=== PATIENT | female | born 1985 | race Hispanic/Latino ===

== ENCOUNTER 2016-06-01 13:03 | Inpatient (IN) | payer OTHER ==
[~2016-06-01] VITALS: Ht 165.1 cm; Wt 68.0 kg
--- NOTE | 2016-06-01 13:28 | ED PSYCHIATRIC COMPLAINT ---
History of Present Illness General Chief Complaint: Psychiatric Related Complaint Stated Complaint: "NOT FEELING WELL" Source: patient Exam Limitations: no limitations Vital Signs & Intake/Output Vital Signs & Intake/Output Vital Signs Date Time Temp Pulse Resp B/P Pulse O2 O2 Flow FiO2 Ox Delivery Rate 06/02 0927 97.6 74 16 146/73 95 Room Air 06/02 0728 97.1 76 16 142/77 98 Room Air 06/02 0617 97.5 78 16 130/86 96 Room Air Room Air 06/01 2240 97.7 87 18 118/56 Room Air 06/01 1618 96.8 60 16 149/70 Room Air 06/01 1412 98 Room Air 06/01 1307 97.0 102 16 134/77 96 Room Air ED Intake and Output 06/02 0000 06/01 1200 Intake Total Output Total Balance Patient 150 lb Weight Allergies Coded Allergies: No Known Allergies (06/01/16) Reconcile Medications Methadone HCl 10 MG/ML ORAL.CONC 110 MG PO DAILY RECOVERY (Reported) Sertraline HCl 100 MG TABLET 1 TAB PO DAILY MENTAL HEALTH (Reported) Triage Note: 31 YEAR OLD FEMALE STATES THAT SHE HAS BEEN HAVING INCREASED DEPRESSION FOR A COUPLE OF MONTHS, HAVING POSITIVE SI THOUGHTS , STTAES THAT SHE HAS BEEN IN METHADONE PROGRAM FOR 2 YEARS, STATES THAT SHE RELAPSED A COUPLE OF MONTHS AGO, LAST HAD HER METHADONE THIS AM, 110 MG. ALSO ADMITS TO USING COCAINE AND DRINKING ALL NIGHT, LAST DRANK AND USED 0600. PT HAS PLAN TO OVERDOSE AND STATES" THAT SHE IS TIRED OF HER LIFE AND JUST WANTS TO " UNABLE TO SLEEP, POOR APPETITE. Triage Nurses Notes Reviewed? yes Onset: Gradual Duration: worse persistent since (weeks) Timing: recent history Severity: severe Severity Numbers: 10 : No Patient currently breastfeeds: No HPI: Patient is a 31-year-old female with history of anxiety, depression suppose to be on Zoloft, takes daily methadone presenting to the emergency department via [facility] chief complaint of "I don't want be here anymore". Patient reports that she has thoughts of hurting herself, no specific plan but she reports that she is just cannot drink and do drugs until she is not here anymore. Denies any current pain physically. Denies any chest pain palpitations or shortness of breath. She reports that she drinks daily. She reports that she uses cocaine. She also admits to auditory hallucinations, voices, she will not specify exactly what they tell her. She reports that she has 'a lot going on". Symptoms severe. Positive anxiety, insomnia. (HORTENCIA JUNG) Past History Travel History Traveled to [place] past 21 day No Medical History Any Pertinent Medical History? 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 No (HORTENCIA JUNG) Review of Systems Review of Systems Constitutional: Reports: no symptoms. Comments Review of systems: See HPI, All other systems negative. Constitutional, no chills fever or weight loss HEENT: No visual changes no sore throat no congestion Cardiovascular: No chest pain ,palpitation Skin, no jaundice no rashes Respiratory: No dyspnea cough sputum or hemoptysis GI: No nausea no vomiting : No dysuria No hematuria Muscle skeletal: no back pain, no neck pain, Neurologic: No numbness no confusion Psych: Positive stress, anxiety and depression Heme/endocrine: No bruising no bleeding no polyuria or polydipsia Immunology: No splenectomy or history of AIDS (HORTENCIA JUNG) Physical Exam Physical Exam General Appearance: anxious, tearful Neurological/Psychiatric: oriented x 3 Comments: Well-developed well-nourished person in no acute distress HEENT: Pupils equally round and reactive to light and accommodation. Nose is atraumatic. Neck: Normal inspection Back: Nontender Cardiovascular: normal JVP Respiratory: . No respiratory distress. Extremity: No edema Neuro: Alert oriented x3 Skin: No appreciable rash on exposed skin, skin is warm and dry. Psych: Anxious, tearful, avoids eye contact SAD PERSONS SAD PERSONS Response Value Depression/Hopelessness? yes 2 Previous Attempts/Psych Care yes 1 Excessive Ethanol/Drug Use? yes 1 Rational Thinking Loss? yes 2 Social Support? has support 0 Total 6 SAD PERSONS Done? yes (HORTENCIA JUNG) Progress Differential Diagnosis: drug overdose, drug withdrawal, electrolyte abnormality, major depressive disorder, generalized anxiety disorder, borderline personality Plan of Care: Orders Procedure Date/time Status Regular Diet 06/02 B Active Patient Safety Monitor 06/01 1328 Active ETHANOL 06/01 1328 Complete COMPREHENSIVE METABOLIC PANEL 06/01 1328 Complete CBC WITHOUT DIFFERENTIAL 06/01 1328 Complete ED CRISIS PSYCH CONSULT 06/01 1328 Active URINE 06/01 1319 Complete URINE DRUG SCREEN FOR ER ONLY 06/01 1319 Complete Laboratory Tests 06/01/16 1402: Anion Gap 12, Estimated GFR > 60, BUN/Creatinine Ratio 12.5, Glucose 95, Calcium 9.0, Total Bilirubin 0.6, AST 19, ALT 27, Alkaline Phosphatase 62, Total Protein 7.6, Albumin 4.4, Globulin 3.2, Albumin/Globulin Ratio 1.4, CBC w Diff NO MAN DIFF REQ, RBC 4.40, MCV 86.3, MCH 28.3, RDW 14.7 H, MPV 9.1, Gran % 61.6, Lymphocytes % 28.4, Monocytes % 7.5, Eosinophils % 2.0, Basophils % 0.5, Absolute Granulocytes 5.1, Absolute Lymphocytes 2.3, Absolute Monocytes 0.6, Absolute Eosinophils 0.2, Absolute Basophils 0, PUBS MCHC 32.8 L, Serum Alcohol < 10.0 06/01/16 1400: Urine Opiates Screen < 100.00, Methadone Screen > 735 H, Barbiturate Screen 68, Ur Phencyclidine Scrn < 6.00, Amphetamines Screen 157, U Benzodiazepines Scrn < 85, Urine Cocaine Screen > 1000 H, Urine Cannabis Screen < 5.00, Urine Test NEGATIVE Hand-Off Endorsed To: MOLLY KHANNA MD Endorsed Time: 183 Pending: other Comments: 06/01/2016 6:11:07 PM Patient will be a bed search. Patient will be signed out to Dr. Khanna pending bed search. (SUSANA JALLOH,HORTENCIA) Hand-Off Endorsed To: KATERINE PADILLA MD Endorsed Time: 2320 Pending: other (CRISIS PLACEMENT) (MOLLY KHANNA MD) Hand-Off Endorsed To: LEANN RAMIREZ MD Endorsed Time: 0700 Pending: other (KATERINE PADILLA MD) Departure Departure Time of Disposition: 1808 Condition: Stable Departure Forms: Customer Survey General Discharge Information (SUSANA JALLOH,HORTENCIA) Departure Disposition: STILL A PATIENT Clinical Impression Primary Impression: Schizoaffective disorder Secondary Impressions: Cocaine abuse, Methadone dependence Psych Admission Note Psychiatric Admission: Patient's case discussed with the nanotechnology engineering technician. I have reviewed all the pertinent lab results and diagnostic results. MEÑO GRIFFIN will be admitted to our inpatient Psychiatric unit for treatment and care. (JAMES CAPPS,LEANN Villar)
[2016-06-01 14:10] LABS: ABSOLUTE BASOPHIL COUNT 0 /CUMM (0.0-0.2); ABSOLUTE EOSINOPHIL COUNT 0.2 /CUMM (0.0-0.7); ABSOLUTE GRANULOCYTE CT 5.1 /CUMM (1.4-6.5); ABSOLUTE LYMPH COUNT 2.3 /CUMM (1.2-3.4); ABSOLUTE MONOCYTE COUNT 0.6 /CUMM (0.10-0.60); BASOPHIL % 0.5 % (0.0-2.0); GRANULOCYTE % 61.6 % (42.2-75.2); HEMATOCRIT 37.9 % (37-47); MEAN CORPUSCULAR HGB 28.3 PG (27.0-31.0); MEAN CORPUSCULAR HGB CONC 32.8 G/DL (33.0-37.0); MEAN CORPUSCULAR VOLUME 86.3 FL (81.0-99.0); MEAN PLATELET VOLUME 9.1 FL (7.4-10.4); PLATELET COUNT 206 /CUMM (130-400); RBC DISTRIBUTION WIDTH 14.7 % (11.5-14.5); WHITE BLOOD CELL COUNT 8.2 /CUMM (4.8-10.8)
[2016-06-01] MEDS ORDERED: METHADONE10 MG/1 M2 PO (14:13)
[2016-06-01] MEDS ORDERED: SERTRALINE HCL100 MG PO (14:13)
--- NOTE | 2016-06-01 16:49 | ED PSYCH CRISIS CONSULTATION ---
See Addendum Crisis Consult Basic Assessment Date of Consult: 06/01/16 Responsible Person/Accompanied By: N/A Insurance Authorization: -*Insurance #1: Insurance name: [employer]Y Phone number: Policy number: [id number] Group number: Authorization number: ED Provider: Patient's ED Provider: HORTENCIA JUNG Primary Care Physician: Patient's PCP: PATIENT HAS NO PRIMARY CARE DR PCP's Phone Number: Current Psychiatrist: patient denies Chief Complaint: Psychiatric Related Complaint Patient's Quote: "Really stressed out and very depressed." Present Illness: The patient is a 31 year old female self presenting to the ED with suicidal ideations, homicidal ideations and auditory hallucinations. The patient reports that she has been feeling more depressed and having thoughts to take drugs, to end her life. She notes that the triggering event was, having her 3 children (4, 8 &12), taken by DCF and given to her family, because of her drug use. She states that she has been on Methadone Maintenance through the [facility] in [place], for the last 2 years. She states that she has been drinking alcohol ( 2 pints) and using Cocaine ($100) daily for the last couple of months. The patient reports that she has been hearing voices that are derogatory in nature and telling her "that she is a piece of shit." The patient states that she has been feeling homicidal, however is very guarded and will not elaborate. She reports that she has had 2 previous hospitalizations, after suicide attempts and hat she has never been in any consistent outpatient treatment. She notes that her last suicide attempt was one month ago where she took an overdose and planned to jump into the river. She has never attended substance abuse treatment and has never attend AA or NA. 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 She has insight into her need for treatment and is motivated to attend. She would like to go to substance abuse treatment, after she is stabilized from her mental health symptoms. Patient's Address: [address] [place], [place] [id number] Other Phone Number: Who Do You Live With? Patient/Self (Hotel) Family/Informants Interviewed: SW attempted to contact the patients mother, however was unable to secondary to a language barrier. Allergies - Coded Allergies: No Known Allergies (06/01/16) Current Medications - Scheduled Medications Methadone HCl 10 MG/ML ORAL.CONC 110 MG PO DAILY RECOVERY (Reported) Entered as Reported by SAURABH SALVADOR on 06/01/16 1413 Sertraline HCl 100 MG TABLET 1 TAB PO DAILY MENTAL HEALTH #30 (Reported) Entered as Reported by SAURABH SALVADOR on 06/01/16 1413 Laboratory Results: Laboratory Tests 06/01/16 1402: Anion Gap 12, Estimated GFR > 60, BUN/Creatinine Ratio 12.5, Glucose 95, Calcium 9.0, Total Bilirubin 0.6, AST 19, ALT 27, Alkaline Phosphatase 62, Total Protein 7.6, Albumin 4.4, Globulin 3.2, Albumin/Globulin Ratio 1.4, CBC w Diff NO MAN DIFF REQ, RBC 4.40, MCV 86.3, MCH 28.3, RDW 14.7 H, MPV 9.1, Gran % 61.6, Lymphocytes % 28.4, Monocytes % 7.5, Eosinophils % 2.0, Basophils % 0.5, Absolute Granulocytes 5.1, Absolute Lymphocytes 2.3, Absolute Monocytes 0.6, Absolute Eosinophils 0.2, Absolute Basophils 0, PUBS MCHC 32.8 L, Serum Alcohol < 10.0 06/01/16 1400: Urine Opiates Screen < 100.00, Methadone Screen > 735 H, Barbiturate Screen 68, Ur Phencyclidine Scrn < 6.00, Amphetamines Screen 157, U Benzodiazepines Scrn < 85, Urine Cocaine Screen > 1000 H, Urine Cannabis Screen < 5.00, Urine Test NEGATIVE Past History Past Medical History Neurological: NONE EENT: NONE Cardiovascular: NONE Respiratory: NONE Gastrointestinal: NONE Hepatic: NONE Renal: NONE Musculoskeletal: NONE Psychiatric: depression Endocrine: NONE Blood Disorders: NONE Cancer(s): NONE 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 Physical Limitations (Interventions): None noted Psychiatric Treatment History Psych Treatment Psychiatric Treatment Yes Inpatient Treatment Yes Outpatient Treatment No Location of Treatment [facility] Reason for Treatment Unclear Dates of Treatment Last IP one month ago, after a suicide attempt. Response to Treatment The patient states that she has not followed through with any outpatient treatment. Diagnosis by History: Unknown Substance Use/Abuse History Drug Use/Abuse 1 Substances Used/Abused Yes Substance Used/Abused Alcohol First Use Unclear Last Used "Last night" How much used/taken 2 pints How often daily For how long "a couple of months" Route of use oral Drug Use/Abuse 2 Substances Used/Abused Yes Substance Used/Abused Cocaine First Use unclear Last Used "Last night" How much used/taken "$100" How often Daily For how long " a couple of months" Route of use Nasal Substance Abuse Treatment Substance Abuse Treatment Past Substance Abuse [place] No Inpatient Treatment No Outpatient Treatment No Location of Treatment N/A Reason for Treatment N/A Dates of Treatment N/A Response to Treatment N/A Comments: The patient denies any history of substance abuse treatment, however is motivated to attend. Current Mental Status Mental Status Orientation: Person, Place, Situation Affect: Flat Speech: WNL Neuro-vegetative: Appetite Decreased, Helpless, Sleep Disturbance Appearance Appearance- Dress/Hygiene: The patient is sitting on the bed, in hospital attire, neat clean and well kempt. Behaviors Thought Process: WNL Thought Content: Auditory Hallucinations (Derogatory in nature) Memory: WNL Insight: WNL SI/HI Risk Assessment Past Suicidal Ideation/Attempts Yes (2 previous attempts) Current Suicidal Ideation/Att Yes Past Homicidal Ideation/Att: No Current Homicidal Ideation/Attempts Yes Degree of Intent: Plan, States Intent, The patient states that she has been having suicidal thoughts and plans to overdose on drugs. , She does admit to homicidal ideations, however is guarded around them and does not elaborate. Danger To: Others, Self Gravely Disabled: +AH Risk Factors: history of suicide atmpts, SA/MH hospitalized, substance abuse Lethality Ratin PTSD Checklist PTSD Done? pt unable to participate (due to symptoms and drug use) ED Management Sitter: Yes Restraints: No DSM5/PS Stressors/Medical Prob Diagnosis' (DSM 5, Stressors, Medical): F29 Unspecified Schizophrenia Spectrum and other Psychotic Disorder and F14.20 Stimulant Use Disorder- Cocaine type and F10.20 Alcohol use Disorder. Medical: Unremarkable Stressors: Children removed by DCF, housing, financial, on methadone maintenance. Current GAF: 25 Comments: N/A Departure Disposition Psych Medical Clearance Date: 02/01/17 Medically Cleared at: 1430 Time Started: 1515 Time Ended: 1600 Psychiatrist Consulted: Rob Nolen MD Date Disposition Established: 06/01/16 Time Disposition Established: 1599 Plan for Disposition - Modality: Bed Search Facility: To be determined Contact: N/A Telephone: N/A Rationale for Disposition: The patient presents with depressed mood, suicidal ideations, homicidal ideations and auditory hallucinations. The patient has been using alcohol and Cocaine daily, while on Methadone Maintenance. She states that she "gave up," when her children were taken by DCF. Case discussed with Dr. Nolen and he finds the patient to be an acute risk self and others and recommends an inpatient admission at this time. Type of IP Admission: Voluntary Additional Instructions: N/A Referrals PATIENT HAS NO PRIMARY CARE DR (PCP/Family)
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
[2016-06-02 16:44] VITALS: BP 127/58
[2016-06-02 20:08] VITALS: BP 127/80
[2016-06-02 22:02] VITALS: BP 130/66
[2016-06-03 02:16] VITALS: BP 134/64
[2016-06-03 05:48] VITALS: BP 129/72
[2016-06-03 07:56] VITALS: BP 140/73
[2016-06-03 08:01] VITALS: BP 140/73
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
[2016-06-03 12:06] VITALS: BP 145/90
[2016-06-03 12:26] VITALS: BP 145/90
[2016-06-03] MEDS ORDERED: ZOLOFT100 M1 PO (12:35)
--- NOTE | 2016-06-03 13:13 | DISCHARGE SUMMARY REPORT-PSYCH ---
Visit Information Visit Dates/Diagnosis' Admission Date: 06/02/16 Discharge Date: 06/03/16 Reason for Admission: Passive suicidal ideation Psy Discharge Primary Diag: PTSD Psy Discharge Secondary Diag: R/O Bipolar disorder with psychotic features; Alcohol use disorder; Stimulant use disorder; Opioid use disorder in remission on methadone maintenance Hospital Course Significant Lab Findings: Lab Free T4 0.85 ng/dL 06/02/16 1338 TSH 0.369 uIU/mL 06/02/16 1338 Triglycerides 153 mg/dL H 06/02/16 1338 Methadone Screen > 735 NG/ML H 06/01/16 1400 Urine Cocaine Screen > 1000 NG/ML H 06/01/16 1400 Urine Test NEGATIVE 06/01/16 1400 Course Complications: None. Consultations: Patient was seen for admission history and physical by Dr. Paulo Alcala. Please see his note for additional information. Allergies: Coded Allergies: No Known Allergies (06/01/16) Hospital Course/TX Response: Patient was monitored on the unit for safety, suicidal ideation, mood and psychosis. Patient participated in multimodal treatments on the unit. Zoloft 100mg was continued daily for depression/anxiety. Patient received a one time dose of Zyprexa 10mg on 06/02/16 for AH. During hospital course, the patient received news from her brother Rodney that their mother had a heart attack and was admitted to the ICU at [facility] and was started on life support. Sudha Roper LCSW contacted the patient's brother, Rodney, who verified the above information and requested the patient be discharged to be present with their family to discontinue their mother's life support. The patient also requested discharge to attend to this family emergency. During hospital course, the patient denied active suicidal ideation, plans and intent. She denied auditory and visual hallucinations. Thought process was organized and linear. Thought content was appropriate. Cognition was grossly intact. Patient's discharge was reviewed at length with CPS treatment team, Sudha Roper LCSW, Dr. Nolen, and this hand sign writer. Given the above circumstance, the patient was deemed psychiatrically clear for discharge into the care of her family, under the condition that if she felt unsafe she would call 911/go to the nearest emergency department. The patient's brother, Rodnye, was in favor of this discharge plan, and verbalized that he would bring the patient to [facility]'s emergency department after the patient visited with their mother, for evaluation as to whether the patient needed inpatient psychiatric readmission. He reported that the patient would be monitored by family, and if she wasn't readmitted to inpatient psychiatry, she would reside with family. The patient and patient's brother verbalized understanding that if the patient felt unsafe, or in the event of an emergency, to call 911/go to nearest emergency department. Both parties verbalized understanding of instruction. The patient's brother, Rodney, arranged for a family friend, Brittany Soto, to pick the patient up from [facility] post-discharge and bring her directly to [facility] to see her mother. An aftercare appointment at [facility] was scheduled for the patient on 05/06/16 at 12:45PM, in the event the patient is not readmitted to inpatient psychiatry. Additionally, the patient was educated on the symptoms of alcohol withdrawal and was strongly advised to go to the nearest emergency department in the event she should experience symptoms of alcohol withdrawal. Patient verbalized understanding of all instructions. Discharge HBIPS - Tobacco Use Treatment Offered Post DC Medications Offered: Refused Tob Medication Tx Post DC Tobacco Treatment Plan: Refused Tobcco Tx Pgm - EtOH/Drug Use D/O Treatment Offered Post DC Medications Offered: Med Not Indicated for D/O Post DC EtOH/SubAbuse TX Plan: [facility] Program Appt Date: 06/06/16 Program Appt Time: 1245 Metabolic Screening - Screen if on a Neuroleptic Medication - Metabolic screening should include: - Blood Pressure, BMI, Glucose or Hgb A1c, & a - Lipid profile from within the past 365 days. Metabolic Screening ([X]) Not Applicable, patient not on a neuroleptic. OR () Patient on a neuroleptic(s) . Enter below results for Glucose or Hemoglobin A1C, and lipid panel if obtained during the last 365 days. BMI: 24.900 Blood Pressure: 145/90 Laboratory Results (If applicable): Lab Cholesterol 122 MG/DL 06/02/16 1338 Cholesterol/HDL Ratio 3 % 06/02/16 1338 Glucose 95 mg/dL 06/01/16 1402 HDL Cholesterol 45 mg/dL 06/02/16 1338 LDL Cholesterol, Calc 47 mg/dL L 06/02/16 1338 Triglycerides 153 mg/dL H 06/02/16 1338 Discharge Instructions General Discharge Information Discharge Medications: Discharge Medications- (Dose, route, freq, indication): Zoloft 100mg tab, take 1 tablet po daily for depression/anxiety, #14, NR. Methadone 110mg po daily for opiate treatment (resume at [facility] in [place], [place]) Patient refused nicotine cessation medication on discharge. Multiple Neuroleptics: ([X]) Not Applicable OR Document below three failed attempts at monotherapy, or a plan to taper to monotherapy, or augmentation of Clozapine. () Patient's Diet: Regular. Patient's Activity: No restrictions. DC Disposition: Patient to be picked up from hospital by family friend, Brittany Soto, and be directly transported to [facility] to see her mother. Patient to remain in the care of her family, and was confirmed by patient's brother Rodney. Recommendations: Patient was advised to please take medications. She was advised to abstain from all substances. She was educated on the symptoms of alcohol withdrawal and strongly advised to go to the nearest emergency department if she should experience symptoms of alcohol withdrawal. She was advised that in the event of an emergency, or if feeling unsafe, to call 911/go to nearest emergency department. Patient verbalized understanding of all instructions. Referred To: [facility] [address] [place] [id number] (t)[phone] Intake appointment scheduled on 06/06/16 at 12:45PM. Copies To: [facility]
--- NOTE | 2016-06-03 13:25 | SOCIAL WORKER TX PLAN PSYCH ---
Treatment Plan - Please Document: - Evidence that there is ongoing collaboration between - the patient and the interdisciplinary team, - including the patient's active participation and - responsibility for engaging in the treatment regimen, - and that the treatment plan is individualized and - relevant to the patient's conditions. - Treatment plan should reflect documentation indicating - that all active therapeutic efforts are included. Strengths/Capabilities: The patient has insight into her need for treatment and is motivated to attend. Physical Limitations (Interventions): None noted Patient Identified Trmt Goals: " I want to get my life in order and go to rehab." Discharge Plan: residential tx Problem/Goals #1 Problem #1: suicidal ideation Goal (Short Term): Today I will attend 2 groups Today I will identify 2 stressors Today I will identify 2 positive supports Today I will work on recognizing 3 emotions I am feeling Goal (Intermediate): Be free of suicidal thoughts/attempts Develop 3 coping skills to deal with depression Identify 3 positive support systems to call in crisis Develop a crisis plan with 3 chapman people Identify 2 positive traits per week about myself Identify 2 things I have to look forward to Identify 2 positive people in my life and 1 thing I appreciate about them Interventions: Learn ways to manage depressive symptoms accordingly and identify positive supports to manage life stressors and mood fluctuations. Modalities: Encourage groups, education on depression, provide CBT treatment, family meeting. DSM5/PS Stressors/Medical Prob Diagnosis' (DSM 5, Stressors, Medical): F29 Unspecified Schizophrenia Spectrum and other Psychotic Disorder and F14.20 Stimulant Use Disorder- Cocaine type and F10.20 Alcohol use Disorder. Medical: Unremarkable Stressors: Children removed by DCF, housing, financial, on methadone maintenance. Current GAF: 25 Treatment Team - Responsibilities of members of the treatment team include: - Medication Management- MD or TABLET MAKING MACHINE OPERATOR HELPER - Medication Administration and Monitoring- Nurse - Group Therapy- Occupational Therapist - 1:1 Therapy,Disch Planning,family involvement-Fabric Designer
--- NOTE | 2016-06-03 13:27 | History & Physical ---
General Information and HPI MD Statement: I have seen and personally examined MEÑO GRIFFIN and documented this H&P. The patient is a 31 year old F who presented with a patient stated chief complaint of "really stressed out and very depressed". Source of Information: patient Exam Limitations: no limitations History of Present Illness: 31-year-old female into the emergency room with suicidal, homicidal ideations and auditory hallucinations. Drinking alcohol at least 2 pints using cocaine daily for the last 2 months. Has been hearing voices. For all those reasons is admitted for evaluation and treatment. Allergies/Medications Allergies: Coded Allergies: No Known Allergies (06/01/16) Home Med list Methadone HCl 10 MG/ML ORAL.CONC 110 MG PO DAILY RECOVERY (Reported) Sertraline HCl (Zoloft) 100 MG TABLET 100 MG PO DAILY depression/anxiety Take 1 tablet by mouth daily. 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 Exam & Diagnostic Data Last 24 Hrs of Vital Signs/I&O Vital Signs Date Time Temp Pulse Resp B/P Pulse O2 O2 Flow FiO2 Ox Delivery Rate 06/03 1226 0.0 64 145/90 06/03 1206 64 145/90 06/03 0801 96.3 60 140/73 02/ 0756 96.3 60 140/73 /03 0548 68 129/72 / 0216 67 134/64 06/02 2202 60 130/66 06/02 2007 97.9 73 127/80 0202 1644 98.4 80 16 127/58 02 1644 98.4 80 16 127/58 98 Room Air Intake & Output 06/03 1600 06/03 0800 06/03 0000 Intake Total Output Total Balance Patient 150 lb Weight Physical Exam General Appearance Alert, Oriented X3, No Acute Distress Skin several piercings and tattoos HEENT Atraumatic, PERRLA, EOMI, nose feels stuffy Neck Supple, No JVD Lymphatic Axillary nl, Cervical nl Cardiovascular Regular Rate Lungs decreased breath sounds Abdomen Soft, No Tenderness Neurological Exam Findings: Normal Gait, Normal Tone, Sensation Intact, Cranial Nerves 3- 12 NL Cranial Nerves II through XII: Intact Extremities No Edema, Normal Pulses Last 24 Hrs of Labs/Damion: Laboratory Tests 06/02/16 1338: Triglycerides 153 H, Cholesterol 122, LDL Cholesterol, Calc 47 L, HDL Cholesterol 45, Cholesterol/HDL Ratio 3, TSH 0.369, Free T4 0.85 06/01/16 1402: Hemoglobin A1c Pending 06/01/16 1402: Anion Gap 12, Estimated GFR > 60, BUN/Creatinine Ratio 12.5, Glucose 95, Calcium 9.0, Total Bilirubin 0.6, AST 19, ALT 27, Alkaline Phosphatase 62, Total Protein 7.6, Albumin 4.4, Globulin 3.2, Albumin/Globulin Ratio 1.4, CBC w Diff NO MAN DIFF REQ, RBC 4.40, MCV 86.3, MCH 28.3, RDW 14.7 H, MPV 9.1, Gran % 61.6, Lymphocytes % 28.4, Monocytes % 7.5, Eosinophils % 2.0, Basophils % 0.5, Absolute Granulocytes 5.1, Absolute Lymphocytes 2.3, Absolute Monocytes 0.6, Absolute Eosinophils 0.2, Absolute Basophils 0, PUBS MCHC 32.8 L, Serum Alcohol < 10.0 06/01/16 1400: Urine Opiates Screen < 100.00, Methadone Screen > 735 H, Barbiturate Screen 68, Ur Phencyclidine Scrn < 6.00, Amphetamines Screen 157, U Benzodiazepines Scrn < 85, Urine Cocaine Screen > 1000 H, Urine Cannabis Screen < 5.00, Urine Test NEGATIVE Laboratory Tests 06/02/16 1338: Triglycerides 153 H, Cholesterol 122, LDL Cholesterol, Calc 47 L, HDL Cholesterol 45, Cholesterol/HDL Ratio 3, TSH 0.369, Free T4 0.85 Diagnostic Data ITS Data Unobtainable at this time Assessment/Plan As Ranked By This Provider Problem List: 1. Cocaine abuse 2. Schizoaffective disorder Qualifiers Schizoaffective disorder type: unspecified Qualified Code: F25.9 - Schizoaffective disorder, unspecified 3. Depression Qualifiers Depression Type: major depressive disorder Major depression recurrence: recurrent Active/Remission status: currently active Major depression episode severity: unspecified Qualified Code: F33.9 - Major depressive disorder, recurrent, unspecified Miscellaneous Miscellaneous Documentation Attending Case Discussed With: CHUCHO CAPPS,RADHA Primary Care Physician: PATIENT HAS NO PRIMARY CARE DR Patient sees these Specialists Psychiatry Level of Patient Care: Brad Consults Needed: Consulting Specialty: Psychiatry Consulting Physician: Radha Beckman MD Reason for Consult: increased depression and drug use
--- NOTE | 2016-06-03 13:36 | SOCIAL WORKER PROG NOTE PSYCH ---
Social Work Progress Note Progress Note SW met with patient for the first time today. Patient and this designer/writer were informed by her brother, Rodney, that patients mother had a heart attack today and is currently on life support. Patients family is requesting for patient to be there before their mother passes. Patient is in agreement that she wants to be there. Patients family friend, Brittany Soto, is going to be picking up patient today and bringing her directly to her family at [facility]. Patient reports a desire for further treatment and plans to go to [facility] ED after seeing her mother if feeling unsafe. Patient has been set up with [facility] for intake on Monday06/06/16 @ 12:45pm in case she decides to not return to ED for inpatient treatment. Patient is able to contract for safety at this time and is aware that she can go to any local ED in order to be admitted into hospital again if feeling unsafe and wanting further treatment. Patient recommended to refrain from any substances during this time and remain with family in safe environment. Patients brother, Rodney, has custody of patients children and will continue to care for them. They were currently at school today when I spoke with Rodney.
== END 2016-06-03 14:11 | DRG 755 ==
LOC: ERH 13:03 → CP SOUTH 06-02 10:31 → ENPENDDIS 06-02 10:31 → ERHI 06-02 10:31 → CP SOUTH 06-02 17:03
PROVIDERS: Physician Assistant; Psychiatry & Neurology Psychiatry; ADMIT Psychiatry & Neurology Psychiatry
DX: F43.10 Post-traumatic stress disorder, unspecified (principal); Z72.89 Other problems related to lifestyle; F15.90 Other stimulant use, unspecified, uncomplicated; F11.20 Opioid dependence, uncomplicated
CPT/HCPCS: 80307; 81025; G0463; G0480; J3490

== ENCOUNTER 2016-06-08 19:32 | Emergency (ER) | payer OTHER ==
[~2016-06-08 19:32] MED LIST: METHADONE10 MG/1 M2 PO; SERTRALINE HCL100 MG PO; ZOLOFT100 M1 PO
[2016-06-08 19:47] VITALS: BP 113/78
[2016-06-08 20:19] LABS: ABSOLUTE BASOPHIL COUNT 0 /CUMM (0.0-0.2); ABSOLUTE EOSINOPHIL COUNT 0.1 /CUMM (0.0-0.7); ABSOLUTE GRANULOCYTE CT 5.1 /CUMM (1.4-6.5); ABSOLUTE LYMPH COUNT 2.6 /CUMM (1.2-3.4); ABSOLUTE MONOCYTE COUNT 0.6 /CUMM (0.10-0.60); BASOPHIL % 0.3 % (0.0-2.0); EOSINOPHIL % 1.2 % (0-5); GRANULOCYTE % 60.6 % (42.2-75.2); HEMATOCRIT 38.4 % (37-47); MEAN CORPUSCULAR HGB 28.5 PG (27.0-31.0); MEAN CORPUSCULAR HGB CONC 32.9 G/DL (33.0-37.0); MEAN CORPUSCULAR VOLUME 86.7 FL (81.0-99.0); MEAN PLATELET VOLUME 9.9 FL (7.4-10.4); PLATELET COUNT 190 /CUMM (130-400); RBC DISTRIBUTION WIDTH 15.1 % (11.5-14.5); RED BLOOD CELL CT 4.44 /CUMM (4.20-5.40); WHITE BLOOD CELL COUNT 8.3 /CUMM (4.8-10.8)
--- NOTE | 2016-06-08 20:38 | ED PSYCHIATRIC COMPLAINT ---
History of Present Illness General Chief Complaint: ETOH/Drug Related Complaint Stated Complaint: PT IS HERE FOR ALCOHOL AND DRUGS Vital Signs & Intake/Output Vital Signs & Intake/Output Vital Signs Date Time Temp Pulse Resp B/P Pulse O2 O2 Flow FiO2 Ox Delivery Rate 06/08 1946 98.6 84 22 113/78 Allergies Coded Allergies: No Known Allergies (06/01/16) Reconcile Medications Methadone HCl 10 MG/ML ORAL.CONC 110 MG PO DAILY RECOVERY (Reported) Sertraline HCl (Zoloft) 100 MG TABLET 100 MG PO DAILY depression/anxiety Take 1 tablet by mouth daily. 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 REPORTS WAS HERE BUT LET ME GO BECAUSE MY MOTHER . : No Patient currently breastfeeds: No Past History Travel History Traveled to [place] past 21 day No Medical History Neurological: NONE EENT: NONE Cardiovascular: NONE Respiratory: NONE Gastrointestinal: NONE Hepatic: NONE Renal: NONE Musculoskeletal: NONE Psychiatric: depression Endocrine: NONE Blood Disorders: NONE Cancer(s): NONE CONTROL PANEL TESTER/Reproductive: NONE History of MRSA: No History of VRE: No History of CDIFF: No Surgical History Surgical History: non-contributory Psychosocial History Who do you live with Patient/Self What is your primary language Trinidadian Tobacco Use: Current Daily Use Daily Tobacco Use Amount/Type: => 5 Cigarettes daily Progress Plan of Care: Orders Procedure Date/time Status URINE 06/08 1951 Complete URINE DRUG SCREEN FOR ER ONLY 06/08 1951 Complete ACETOMINOPHEN 06/08 1951 Active SALICYLATE 06/08 1951 Active ETHANOL 06/08 1951 Active COMPREHENSIVE METABOLIC PANEL 06/08 1951 Active CBC WITHOUT DIFFERENTIAL 06/08 1951 Complete Laboratory Tests 06/08/161954: Urine Opiates Screen < 100.00, Methadone Screen > 735 H, Barbiturate Screen < 60, Ur Phencyclidine Scrn 6.50, Amphetamines Screen < 100, U Benzodiazepines Scrn < 85, Urine Cocaine Screen > 1000 H, Urine Cannabis Screen < 5.00, Urine Test NEGATIVE 06/08/161952: Sodium Pending, Potassium Pending, Chloride Pending, Carbon Dioxide Pending, Anion Gap Pending, BUN Pending, Creatinine Pending, BUN/Creatinine Ratio Pending , Glucose Pending, Calcium Pending, Total Bilirubin Pending, AST Pending, ALT Pending, Alkaline Phosphatase Pending, Total Protein Pending, Albumin Pending, Globulin Pending, Albumin/Globulin Ratio Pending, CBC w Diff NO MAN DIFF REQ, RBC 4.44, MCV 86.7, MCH 28.5, RDW 15.1 H, MPV 9.9, Gran % 60.6, Lymphocytes % 31.3, Monocytes % 6.6, Eosinophils % 1.2, Basophils % 0.3, Absolute Granulocytes 5.1, Absolute Lymphocytes 2.6, Absolute Monocytes 0.6, Absolute Eosinophils 0.1, Absolute Basophils 0, PUBS MCHC 32.9 L, Salicylates Pending, Acetaminophen Pending, Serum Alcohol Pending Departure Departure Condition: Stable Referrals: PATIENT HAS NO PRIMARY CARE DR (PCP/Family) Departure Forms: Customer Survey General Discharge Information
== END 2016-06-08 22:25 | disposition admitted as inpatient to this hospital (09) ==
LOC: ERH 19:32
PROVIDERS: Emergency Medicine
DX: F32.9 Major depressive disorder, single episode, unspecified (principal); F10.94 Alcohol use, unspecified with alcohol-induced mood disorder; F14.94 Cocaine use, unspecified with cocaine-induced mood disorder
CPT/HCPCS: 80307; 81025; 99281; G0480; J3490

== ENCOUNTER 2016-06-09 09:03 | Inpatient (IN) | payer OTHER ==
[~2016-06-09] VITALS: Ht 162.6 cm; Wt 68.0 kg
--- NOTE | 2016-06-09 09:09 | NUR ---
31 Y/O FEMALE C/O DEPRESSION AND SI, "CRISTOBAL BEEN THINKING OF HURTING MYSELF AND I HAVE BEEN DOING A LOT OF DRUGS AND DRINKING". ADMITS TO ETOH USE AND COCAINE USE - LAST 299. STATES SHE WOULD HURT HERSELF "BY DOING A LOT OF DRUGS". DENIES HI. CALM AND COOPERATIVE
--- NOTE | 2016-06-09 09:16 | NUR ---
PT TO [facility]OR[facility] OLIVEIRA AT BEDSIDE FOR WANDING AT THIS TIME.
--- NOTE | 2016-06-09 09:24 | NUR ---
DR ALICIA AT BEDSIDE FOR EVAL
--- NOTE | 2016-06-09 09:39 | NUR ---
PT HAS 1 BELONGING BAG IN CLOSET, VALUBLES GIVEN TO PTS FRIEND.
--- NOTE | 2016-06-09 09:53 | NUR ---
NICOTINE PATCH ATTPLIED TO R ARM AT THIS TIME. BLOOD WORK AND URINE COLLECTED AND SENT TO LAB. PT RESTING ON STRETCHER READING A MAGAZINE, ARTEM PRESENT
[2016-06-09 09:58] LABS: ABSOLUTE BASOPHIL COUNT 0 /CUMM (0.0-0.2); ABSOLUTE EOSINOPHIL COUNT 0.1 /CUMM (0.0-0.7); ABSOLUTE GRANULOCYTE CT 3.6 /CUMM (1.4-6.5); ABSOLUTE LYMPH COUNT 2.5 /CUMM (1.2-3.4); ABSOLUTE MONOCYTE COUNT 0.5 /CUMM (0.10-0.60); BASOPHIL % 0.7 % (0.0-2.0); EOSINOPHIL % 1.5 % (0-5); GRANULOCYTE % 53.3 % (42.2-75.2); HEMATOCRIT 37.6 % (37-47); MEAN CORPUSCULAR HGB 28.6 PG (27.0-31.0); MEAN CORPUSCULAR HGB CONC 33.2 G/DL (33.0-37.0); MEAN CORPUSCULAR VOLUME 86.2 FL (81.0-99.0); MEAN PLATELET VOLUME 9.8 FL (7.4-10.4); PLATELET COUNT 169 /CUMM (130-400); RBC DISTRIBUTION WIDTH 14.6 % (11.5-14.5); RED BLOOD CELL CT 4.36 /CUMM (4.20-5.40); WHITE BLOOD CELL COUNT 6.8 /CUMM (4.8-10.8)
--- NOTE | 2016-06-09 10:03 | ED PSYCHIATRIC COMPLAINT ---
History of Present Illness General Chief Complaint: Psychiatric Related Complaint Stated Complaint: DEPRESSION,+SI Source: patient Exam Limitations: physical impairment Vital Signs & Intake/Output Vital Signs & Intake/Output Vital Signs Date Time Temp Pulse Resp B/P Pulse O2 O2 Flow FiO2 Ox Delivery Rate 06/09 0908 97.1 82 16 139/92 98 Room Air Allergies Coded Allergies: No Known Allergies (06/01/16) Reconcile Medications Methadone HCl 10 MG/ML ORAL.CONC 110 MG PO DAILY RECOVERY (Reported) Sertraline HCl (Zoloft) 100 MG TABLET 100 MG PO DAILY depression/anxiety Take 1 tablet by mouth daily. Triage Note: 31 Y/O FEMALE C/O DEPRESSION AND SI, "CRISTOBAL BEEN THINKING OF HURTING MYSELF AND I HAVE BEEN DOING A LOT OF DRUGS AND DRINKING". ADMITS TO ETOH USE AND COCAINE USE - LAST 299. STATES SHE WOULD HURT HERSELF "BY DOING A LOT OF DRUGS". DENIES HI. CALM AND COOPERATIVE Triage Nurses Notes Reviewed? yes Onset: Abrupt Duration: day(s): Timing: recent history : No Patient currently breastfeeds: No HPI: 06/09/16 10 AM 31-year-old female presents to the emergency department for depression. She's also had suicidal ideation. According to the patient she has a history of opioid dependency. She also has been using cocaine and drinking alcohol. She said that her mother recently . She's had depression with suicidal ideation. The onset of the symptoms were abrupt, the duration has been for days , the severity is significant as her symptoms required her to come to the emergency department for care. She denies any other complaints. No chest pain or shortness of breath She does have a past medical history of bipolar disorder Past History Travel History Traveled to [place] past 21 day No Medical History Any Pertinent Medical History? 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 No Review of Systems Review of Systems Constitutional: Denies: fever. EENTM: Reports: epistaxis. Denies: visual changes. Respiratory: Denies: short of breath. Cardiovascular: Denies: chest pain. GI: Denies: abdominal pain. Genitourinary: Reports: no symptoms. Musculoskeletal: Reports: no symptoms. Skin: Reports: no symptoms. Neurological/Psychological: Reports: no symptoms. Hematologic/Endocrine: Reports: no symptoms. Physical Exam Physical Exam General Appearance: alert, anxious, moderate distress Head: atraumatic, normal appearance Eyes: Bilateral: normal appearance, PERRL, EOMI. Ears, Nose, Throat: normal pharynx, DRIED BLOOD NARES Neck: normal inspection, supple Respiratory: normal breath sounds, chest non-tender Cardiovascular: regular rate/rhythm Gastrointestinal: non-tender Extremities: normal range of motion Neurological/Psychiatric: no motor/sensory deficits, awake, alert, depressed affect Appearance/Memory/Insight: disheveled Behavoir/Eye Contact/Speech: avoids eye contact, cooperative Thoughts/Hallucinations: no apparent hallucination Skin: intact, normal color, warm/dry SAD PERSONS SAD PERSONS Response Value Depression/Hopelessness? yes 2 Previous Attempts/Psych Care yes 1 Excessive Ethanol/Drug Use? yes 1 Single//? yes 1 Social Support? has no support 1 Total 6 SAD PERSONS Done? yes Progress Differential Diagnosis: drug intoxication, drug overdose, drug withdrawal, DEPRESSION, IMER, SUICIDAL IDEATION Plan of Care: Orders Procedure Date/time Status Admit to inpatient psych 06/09 1237 Active Continuous Observation Monitor 06/09 937 Active URINE DRUG SCREEN FOR ER ONLY 06/09 937 Complete TROPONIN LEVEL 06/09 937 Complete ETHANOL 06/09 937 Complete COMPREHENSIVE METABOLIC PANEL 06/09 937 Complete CBC WITHOUT DIFFERENTIAL 06/09 937 Complete EKG 06/09 937 Active ED CRISIS PSYCH CONSULT 06/09 937 Active Current Medications Sig/Libia Start time Last Medication Dose Stop Time Status Admin Methadone HCl 110 MG ONCE ONE 06/09 1245 AC (Dolophine) 06/09 1246 Sertraline HCl 100 MG ONCE ONE 06/09 1245 AC (Zoloft) 06/09 1246 Laboratory Tests 06/09/16 0950: Urine Opiates Screen < 100.00, Methadone Screen > 735 H, Barbiturate Screen < 60, Ur Phencyclidine Scrn 7.10, Amphetamines Screen 102, U Benzodiazepines Scrn < 85, Urine Cocaine Screen > 1000 H, Urine Cannabis Screen < 5.00 06/09/16 0947: Anion Gap 10, Estimated GFR > 60, BUN/Creatinine Ratio 21.3, Glucose 83, Calcium 8.7, Total Bilirubin 0.4, AST 18, ALT 23, Alkaline Phosphatase 61, Troponin I < 0.01, Total Protein 6.7, Albumin 3.8, Globulin 2.9, Albumin/Globulin Ratio 1.3, CBC w Diff NO MAN DIFF REQ, RBC 4.36, MCV 86.2, MCH 28.6, RDW 14.6 H, MPV 9.8, Gran % 53.3, Lymphocytes % 36.8, Monocytes % 7.7, Eosinophils % 1.5, Basophils % 0.7, Absolute Granulocytes 3.6, Absolute Lymphocytes 2.5, Absolute Monocytes 0.5 , Absolute Eosinophils 0.1, Absolute Basophils 0, PUBS MCHC 33.2, Serum Alcohol < 10.0 Initial ED EKG: NSR Departure Departure Disposition: STILL A PATIENT Condition: Stable Clinical Impression Primary Impression: Depression Referrals: PATIENT HAS NO PRIMARY CARE DR (PCP/Family) Departure Forms: Customer Survey General Discharge Information Psych Admission Note Psychiatric Admission: I have seen and evaluated MEÑO GRIFFIN. I have also reviewed all the pertinent lab results and diagnostic results. MEÑO GRIFFIN will be admitted to our inpatient Psychiatric unit for treatment and care. Critical Care Note Critical Care Note Critical Care Time: 30-74 min
--- NOTE | 2016-06-09 11:30 | NUR ---
PT VERBALLY COMPLAINING THAT SHE HAS BEEN "WAITING QUIETLY" TO BE MOVED INTO A ROOM. REDIRECTED BY STAFF. PT ALSO MAKING COMMENTS TO MALE PT WHO WAS [facility]ED [facility].
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
--- NOTE | 2016-06-09 12:20 | NUR ---
PT MEETING WITH CRISIS SW IN CONSULTATION ROOM
--- NOTE | 2016-06-09 12:49 | NUR ---
PT MEDICATED WITH METHADONE MAINTENANCE DOSE OF 110MG (VERIFIED WITHIN PAST WEEK WITH APT FNDTN) AND ZOLOFT 100MG. PT ANTICIPATING TRANSFER DOWN TO [facility].
--- NOTE | 2016-06-09 12:49 | ED PSYCH CRISIS CONSULTATION ---
Crisis Consult Basic Assessment Date of Consult: 06/09/16 Responsible Person/Accompanied By: self Insurance Authorization: Insurance #1: Insurance name: COLTON Villar [employer] Phone number: Policy number: [id number] Group number: Authorization number: ED Provider: Patient's ED Provider: LEANN ALICIA DO Primary Care Physician: Patient's PCP: PATIENT HAS NO PRIMARY CARE DR PCP's Phone Number: Current Psychiatrist: none Chief Complaint: Psychiatric Related Complaint Patient's Quote: "I tried to kill myself." Present Illness: Pt is a 31 yo female who presents to the ED expressing SI. Pt reports that she she tried to kill herself last night by "taking a bunch of sleeping pills, drinking and doing a lot of coke." Pt was not able to specify what sleeping pills or how many. Pt was unsure how much coke wither. Pt states she drank 2 bottles of hard alcohol. Pt was admitted to [facility] on 06/01 and discharged 06/02 due to her Mother's unexpected . Pt presents as tearful when discussing her mother. Pt expressed that she did not want to leave [facility] but had to be there for he mother's . Pt is requesting readmission and expresses her motivation for tx. Pt identified that she relapsed as soon as she was discharged doing"a lot of coke" daily and 2 bottles of hard alcohol. Pt expresses feeling depressed hopeless and helpless. Case reviewed with Dr. Nolen of psychiatry who agreed to readmit pt. Patient's Address: [address] [place] [address] Other Phone Number: Who Do You Live With? Patient/Self Family/Informants Interviewed: message left for pt's brother Rodney Cooper Allergies - Coded Allergies: No Known Allergies (06/01/16) Current Medications - Scheduled Medications Methadone HCl 10 MG/ML ORAL.CONC 110 MG PO DAILY RECOVERY (Reported) Entered as Reported by SAURABH SALVADOR on 06/01/16 1413 Last Taken: 06/08/16 Sertraline HCl (Zoloft) 100 MG TABLET 100 MG PO DAILY depression/anxiety #14 TAB Prescribed by JENNIFER TRUONG APRN on 06/03/16 Last Taken: 06/08/16 Laboratory Results: Laboratory Tests 06/09/16 0950: Urine Opiates Screen < 100.00, Methadone Screen > 735 H, Barbiturate Screen < 60, Ur Phencyclidine Scrn 7.10, Amphetamines Screen 102, U Benzodiazepines Scrn < 85, Urine Cocaine Screen > 1000 H, Urine Cannabis Screen < 5.00 06/09/16 0947: Anion Gap 10, Estimated GFR > 60, BUN/Creatinine Ratio 21.3, Glucose 83, Calcium 8.7, Total Bilirubin 0.4, AST 18, ALT 23, Alkaline Phosphatase 61, Troponin I < 0.01, Total Protein 6.7, Albumin 3.8, Globulin 2.9, Albumin/Globulin Ratio 1.3, CBC w Diff NO MAN DIFF REQ, RBC 4.36, MCV 86.2, MCH 28.6, RDW 14.6 H, MPV 9.8, Gran % 53.3, Lymphocytes % 36.8, Monocytes % 7.7, Eosinophils % 1.5, Basophils % 0.7, Absolute Granulocytes 3.6, Absolute Lymphocytes 2.5, Absolute Monocytes 0.5 , Absolute Eosinophils 0.1, Absolute Basophils 0, PUBS MCHC 33.2, Serum Alcohol < 10.0 Past History Past Medical History Neurological: NONE EENT: NONE Cardiovascular: NONE Respiratory: NONE Gastrointestinal: NONE Hepatic: NONE Renal: NONE Musculoskeletal: NONE Psychiatric: depression Endocrine: NONE Blood Disorders: NONE Cancer(s): NONE 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 Physical Limitations (Interventions): None noted Psychiatric Treatment History Psych Treatment Psychiatric Treatment Yes Inpatient Treatment Yes Outpatient Treatment No Location of Treatment [facility] Reason for Treatment Depression Dates of Treatment multiple Response to Treatment variable Diagnosis by History: Depression, PTSD Substance Use/Abuse History Drug Use/Abuse 1 Substances Used/Abused Yes Substance Used/Abused Alcohol First Use Since discharge from [facility] Last Used last night How much used/taken 2 bottles How often daily For how long since [facility]/c from [facility] Route of use po Drug Use/Abuse 2 Substances Used/Abused Yes Substance Used/Abused Cocaine First Use since dishcarged from [facility] Last Used last night How much used/taken "a lot" How often daily For how long since discharged from [facility] Route of use snort Substance Abuse Treatment Substance Abuse Treatment Past Substance Abuse TX Yes Inpatient Treatment Yes Outpatient Treatment No Location of Treatment [facility] Reason for Treatment alcohol and stim use Dates of Treatment multiple Response to Treatment variable Current Mental Status Mental Status Orientation: Person, Place, Situation Affect: Depressed, Hopeless, Sad Speech: WNL Neuro-vegetative: Anhedonia, Appetite Decreased, Concentration Poor, Energy Increased, Loss of Interest, Sleep Disturbance Appearance Appearance- Dress/Hygiene: fairly groomed, tearful Behaviors Thought Process: WNL Thought Content: WNL Memory: WNL Insight: WNL SI/HI Risk Assessment Past Suicidal Ideation/Attempts Yes Current Suicidal Ideation/Att Yes Past Homicidal Ideation/Att: No Current Homicidal Ideation/Attempts No Degree of Intent: Made Preparations, Plan, States Intent, made attempt Danger To: Self Gravely Disabled: Poor Impulse Control Risk Factors: access to lethal means, high anxiety/distress, history of suicide atmpts, SA/MH hospitalized, substance abuse, poor impulse control, limited support Lethality Ratin (most severe) PTSD Checklist PTSD Done? patient declined ED Management Sitter: Yes Restraints: No DSM5/PS Stressors/Medical Prob Diagnosis' (DSM 5, Stressors, Medical): Unspecified Depression F32.9, F14.20 Stimulant Use Disorder- Cocaine type and F10.20 Alcohol use Disorder. Current GAF: 25 Departure Disposition Psych Medical Clearance Date: 06/09/16 Medically Cleared at: 1230 Time Started: 1230 Time Ended: 1300 Psychiatrist Consulted: Rob Nolen MD Date Disposition Established: 06/09/16 Time Disposition Established: 1300 Plan for Disposition - Modality: Inpatient Psychiatry Facility: [facility] Rationale for Disposition: safety and stabilization of sx Type of IP Admission: Voluntary Referrals PATIENT HAS NO PRIMARY CARE DR (PCP/Family)
--- NOTE | 2016-06-09 13:30 | NUR ---
PT SEATED ON STRETCHER IN HALLWAY ANTICIPATING TRANSFER DOWN TO [facility]. PT CALM AND COOPERATIVE AT THIS TIME.
--- NOTE | 2016-06-09 14:13 | NUR ---
PT GIVEN MULTIVITAMIN, FOLIC ACID AND VITAMIN B1. PT CALM AND COOPERATIVE AT THIS TIME.
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
[2016-06-09 15:50] VITALS: BP 143/78
[2016-06-09 15:58] VITALS: BP 143/78
--- NOTE | 2016-06-09 17:19 | NUR ---
DR. MORA'S OFFICE NOTIFIED FOR F/U NOTE @ 2912.
--- NOTE | 2016-06-09 19:27 | NUR ---
Pt's mood is stable although reports depression, full range affect, is pleasant, easily engaging and appropriate, is present on the unit and interacting with peers and staff. When asked directly denies SI/HI and current A/T/V hallucinations and if anything changed would tell staff. Does report intermittent AH that calls her names but not command. Pt reports motivation for treatment and is future oriented and would not try and harm self and remain safe in hospital. Skn that is visible is clean dry and intact and areas that are not visible pt denies any alterations. Pt has no issues or complaints reported or observed, denies pain, calm & cooperative. Dr. Alcala's office notified for f/u note.
[2016-06-09 19:34] VITALS: BP 145/78
[2016-06-09 19:36] VITALS: BP 145/78
[2016-06-09 21:36] VITALS: BP 92/43
--- NOTE | 2016-06-09 22:07 | NUR ---
PT. VERY QUIET IN ROOM THIS EVENING COOPERATIVE WITH CARE NO ISSUES VITALS STABLE.
[2016-06-10] VITALS (11 sets, daily range): BP systolic 127–149; BP diastolic 66–94
--- NOTE | 2016-06-10 11:05 | SOCIAL WORKER PROG NOTE PSYCH ---
Social Work Progress Note Progress Note SW met with patient for the first time today since re-admission to the hospital. Patient was discharged from [facility] last [place] due to unexpectedly finding out that her mother was on life support due to a stroke. Patient left [facility] to see her mother and did get to see her mother before she passed. Patient reports that she attended her mothers this week but also relapsed on alcohol and cocaine. Patient reports suicidal ideation at present and reports a desire to seek treatment for her substance abuse. Patient reports no prior residential tx for her substance abuse and is open to suggestions. Patient receives methadone at [facility] in [place] so is in agreement to wait at [facility] in [place] if unable to get directly to residential rehab from hospital. Patient will be referred to [facility] as well.
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
--- NOTE | 2016-06-10 13:36 | SOCIAL WORKER TX PLAN PSYCH ---
Treatment Plan - Please Document: - Evidence that there is ongoing collaboration between - the patient and the interdisciplinary team, - including the patient's active participation and - responsibility for engaging in the treatment regimen, - and that the treatment plan is individualized and - relevant to the patient's conditions. - Treatment plan should reflect documentation indicating - that all active therapeutic efforts are included. Strengths/Capabilities: The patient has insight into her need for treatment and is motivated to attend. Physical Limitations (Interventions): None noted Patient Identified Trmt Goals: " I want to stay sober." Discharge Plan: residential rehab Problem/Goals #1 Problem #1: suicidal ideation Goal (Short Term): Today I will attend 2 groups Today I will identify 2 stressors Today I will identify 2 positive supports Today I will work on recognizing 3 emotions I am feeling Goal (Intermediate): Be free of suicidal thoughts/attempts Develop 3 coping skills to deal with depression Identify 3 positive support systems to call in crisis Develop a crisis plan with 3 chapman people Identify 2 positive traits per week about myself Identify 2 things I have to look forward to Identify 2 positive people in my life and 1 thing I appreciate about them Interventions: Learn ways to manage depressive symptoms accordingly and identify positive supports to manage life stressors and mood fluctuations. Modalities: Encourage groups, education on depression, provide CBT treatment, family meeting. Problem/Goals #2 Problem #2: cocaine dependence/abuse Goal (Short Term): 1) Refrain from cocaine use 2) Identify 3 triggers for use 3) Identify 3 sober supports 4) Identify 3 coping skills Goal (Intermediate): I will attend all AA groups on unit I will arrange aftercare with residential rehab I will Identify 3 coping skills for cravings to use I will attend all AA meetings on the unit I will set up aftercare for dual diagnosis program to address both mental health and substance abuse concerns Interventions: Learn ways to manage cravings to use substances accordingly and identify coping skills to prevent relapse from occurring due to anxious/depressed feelings. Modalities: Encourage groups, education on addiction, provide CBT treatment, family meeting. 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 Current GAF: 25 Treatment Team - Responsibilities of members of the treatment team include: - Medication Management- MD or TELEPHONE OPERATOR - Medication Administration and Monitoring- Nurse - Group Therapy- Occupational Therapist - 1:1 Therapy,Disch Planning,family involvement-[employer]
--- NOTE | 2016-06-10 13:58 | NUR ---
PT STATED HER GOAL WAS "TO STAY STRONG". SHE IS CALM AND COOPERATIVE. SHE OPENED UP IN GROUP AND WHEN ASKED SHE DENIED SUICIDAL THOUGHTS. SHE IS COMPLIANT WITH HER MED REGIME AND TREATMENT PLAN
--- NOTE | 2016-06-10 19:30 | History & Physical ---
General Information and HPI MD Statement: I have seen and personally examined MEÑO GRIFFIN and documented this H&P. The patient is a 31 year old F who presented with a patient stated chief complaint of "I ve been thinking of hurting myself". Source of Information: patient, old records Exam Limitations: unable to give history History of Present Illness: 31 year old female was at [facility] from 06-01 t0 06-02 and left due her mothers unexpected ,patient requested readmission has SI and doing a lot of drugs and drinking alcohol. Allergies/Medications Allergies: Coded Allergies: haloperidol (From HALDOL) (06/10/16) Home Med list Methadone HCl 10 MG/ML ORAL.CONC 110 MG PO DAILY RECOVERY (Reported) Sertraline HCl (Zoloft) 100 MG TABLET 100 MG PO DAILY depression/anxiety Take 1 tablet by mouth daily. Compliance With Home Meds: UNKNOWN Past History Travel History Traveled to [facility] past 21 day No Medical History Neurological: NONE EENT: NONE Cardiovascular: NONE Respiratory: NONE Gastrointestinal: NONE Hepatic: NONE Renal: NONE Musculoskeletal: NONE Psychiatric: depression Endocrine: NONE Blood Disorders: NONE Cancer(s): NONE POLICE CHIEF DEPUTY/Reproductive: NONE History of MRSA: No History of VRE: No History of CDIFF: No Isolation History: Standard Surgical History Surgical History: non-contributory Past Family/Social History Psychosocial History Where do you live? Other Review of Systems Review of Systems Constitutional: Reports: see HPI. Exam & Diagnostic Data Last 24 Hrs of Vital Signs/I&O Vital Signs Date Time Temp Pulse Resp B/P Pulse O2 O2 Flow FiO2 Ox Delivery Rate 06/10 1607 68 136/76 06/10 1600 68 136/76 06/10 1429 63 137/90 06/10 1233 60 127/87 06/10 1224 60 127/87 06/10 1033 82 149/89 06/10 0809 97.2 78 141/94 06/10 808 97.2 78 141/94 06/09 2135 97.8 70 92/43 06/09 2135 97.8 70 9243 06/09 1935 97.7 65 145/78 06/09 193 97.7 65 145/78 Intake & Output 06/10 1600 06/10 0800 06/10 0000 Intake Total Output Total Balance Patient 150 lb Weight Physical Exam General Appearance Alert, Oriented X3, Cooperative Skin No Rashes, several piercings. and tattoos HEENT PERRLA, EOMI, nose red irritated mucosaes. Neck Supple, No JVD, No thryomegaly Lymphatic Axillary nl, Cervical nl Cardiovascular Regular Rate Lungs Clear to Auscultation Abdomen Normal Bowel Sounds, Soft, No Tenderness Neurological Exam Findings: Normal Gait, Normal Speech Cranial Nerves II through XII: Intact Extremities No Cyanosis, No Edema, Normal Pulses Last 24 Hrs of Labs/Damion: Laboratory Tests 06/09/16 0950: Urine Opiates Screen < 100.00, Methadone Screen > 735 H, Barbiturate Screen < 60, Ur Phencyclidine Scrn 7.10, Amphetamines Screen 102, U Benzodiazepines Scrn < 85, Urine Cocaine Screen > 1000 H, Urine Cannabis Screen < 5.00 06/09/16 0947: Anion Gap 10, Estimated GFR > 60, BUN/Creatinine Ratio 21.3, Glucose 83, Calcium 8.7, Total Bilirubin 0.4, AST 18, ALT 23, Alkaline Phosphatase 61, Troponin I < 0.01, Total Protein 6.7, Albumin 3.8, Globulin 2.9, Albumin/Globulin Ratio 1.3, CBC w Diff NO MAN DIFF REQ, RBC 4.36, MCV 86.2, MCH 28.6, RDW 14.6 H, MPV 9.8, Gran % 53.3, Lymphocytes % 36.8, Monocytes % 7.7, Eosinophils % 1.5, Basophils % 0.7, Absolute Granulocytes 3.6, Absolute Lymphocytes 2.5, Absolute Monocytes 0.5 , Absolute Eosinophils 0.1, Absolute Basophils 0, PUBS MCHC 33.2, Serum Alcohol < 10.0 Assessment/Plan As Ranked By This Provider Problem List: 1. Methadone dependence 2. Cocaine abuse 3. Schizoaffective disorder 4. Depression Miscellaneous Miscellaneous Documentation Attending Case Discussed With: KATERINE CANO MD Primary Care Physician: PATIENT HAS NO PRIMARY CARE DR Patient sees these Specialists Psychiatry Level of Patient Care: ESTER Salinas Consults Needed: Consulting Specialty: Psychiatry Consulting Physician: Dr. Cano Reason for Consult: SI ETOH and drug abuse
--- NOTE | 2016-06-10 20:30 | NUR ---
PT IS STABLE WITH FLAT AFFECT. PT SPENT MOST OF EVENING SHIFT IN PT ROOM SLEEPING. OOB FOR VS, MEDS, DINNER. PT HAD ONE VISITOR EARLIER IN WHICH SHE VISITED FOR ROUGHLY 30 MINUTES. PT WAS SEEN SPEAKING BRUNEIAN WITH A FELLOW BRUNEIAN SPEAKING PEER. OTHERWISE MINIMAL INTERACTION WITH PEERS/STAFF. VS ARE STABLE AND PT DENIES ANY SI/HI TO THIS MHW.
--- NOTE | 2016-06-10 23:02 | NUR ---
Pt is in bed while staff is doing a staggard check. Staff saw the pt vaping in her room B5. Pt is compliant and cooperative while the security personnel came down to check room. Pt is on hospital scrubs and the corporate controller is been notified about the incident. Will monitor the pt's behavior overnight.
--- NOTE | 2016-06-10 23:02 | NUR ---
PT FOUND VAPING IN ROOM BY [facility] AMIR. SECURITY CALLED. PT CHANGED INTO SCRUBS. ROOM AND CLOTHING CHECKED. DR GOODSON NOTIFIED. ORDER RECEIVED FOR PT TO REMAIN IN SCRUBS X 24 HRS AND NO VISITORS X 24 HRS PER UNIT PROTOCOL.
[2016-06-11] VITALS (8 sets, daily range): BP systolic 116–136; BP diastolic 71–77
--- NOTE | 2016-06-11 05:39 | NUR ---
PT CAUGHT WITH VAPORIZER AT 2240. SECURTY CALLED. PT CHANGED TO SCRUBS, INFORMED SHE WILL HAVE NO VISITORS FOR 24 HOURS. PT APPEARED TO SLEEP.
--- NOTE | 2016-06-11 13:39 | CP SOUTH PROGRESS NOTE PSYCH ---
Psych (Inpt) Progress Note Progress Note Include the following elements, when applicable: Involvement in the active treatment of the patient with behavioral observations of the patient and the patient's response to the treatment. Review of the ongoing treatment process in the context of the treatment plan. Indication of how multi-disciplinary staff members are carrying out the treatment plan. Plans for future interventions and recommendations for revision of the treatment plan. Liaison with other physicians/providers. Progress Note: Pt seen after took methadone. She noted that very sedated and unsteady but would be more alert in one hour. Notes continued SI though improved mood overall. Denies active SI or HI. Denies looking for means to hurt self while here. Denies AVHs. Current Medications Sig/Libia Start time Last Medication Dose Route Stop Time Status Admin Folic Acid 1 MG DAILY 06/09 1332 DC 06/11 PO 06/11 1001 0849 Lorazepam 0.5 MG 799,06/12 0800 AC PO 06/12 2000 Lorazepam 0.5 MG FOUR TIMES A DAY 06/11 1000 AC 06/11 PO 06/11 2101 0849 Lorazepam 1 MG 2200 06/10 2200 DC 06/10 PO 06/10 2201 2211 Lorazepam 0.5 MG 1600 06/10 1600 DC 06/10 PO 06/10 1601 1630 Lorazepam 2 MG Q2P PRN 06/09 1345 AC PO Lorazepam 1 MG Q2P PRN 06/09 1345 AC PO Methadone HCl 110 MG DAILY@00 06/10 0800 AC 06/11 PO 0850 Multivitamins 1 TAB DAILY 06/09 1332 AC 06/11 PO 0849 Nicotine 21 MG DAILY 06/10 1000 AC 06/11 TOP 0849 Olanzapine 2.5 MG 06/11 0800 AC 06/11 PO 0849 Olanzapine 5 MG 2200 06/10 2200 AC 06/10 PO 2211 Olanzapine 2.5 MG Q8P PRN 06/10 1230 AC 06/10 PO 1630 Sertraline HCl 100 MG 06/10 0800 AC 06/11 PO 0849 Thiamine HCl 100 MG DAILY 06/09 1332 DC 06/11 PO 06/11 1001 0849 Laboratory Tests 06/09 06/09 0950 0947 Chemistry Sodium (137 - 145 mmol/L) 140 Potassium (3.5 - 5.1 mmol/L) 4.1 Chloride (98 - 107 mmol/L) 104 Carbon Dioxide (22 - 30 mmol/L) 26 Anion Gap (5 - 16) 10 BUN (7 - 17 mg/dL) 17 Creatinine (0.5 - 1.0 mg/dL) 0.8 Estimated GFR (>60 ml/min) > 60 BUN/Creatinine Ratio (7 - 25 %) 21.3 Glucose (65 - 99 mg/dL) 83 Calcium (8.4 - 10.2 mg/dL) 8.7 Total Bilirubin (0.2 - 1.3 mg/dL) 0.4 AST (14 - 36 U/L) 18 ALT (9 - 52 U/L) 23 Alkaline Phosphatase (<127 U/L) 61 Troponin I (< 0.11 ng/ml) < 0.01 Total Protein (6.3 - 8.2 g/dL) 6.7 Albumin (3.5 - 5.0 g/dL) 3.8 Globulin (1.9 - 4.2 gm/dL) 2.9 Albumin/Globulin Ratio (1.1 - 2.2 %) 1.3 Hematology CBC w Diff NO MAN DIFF REQ WBC (4.8 - 10.8 /CUMM) 6.8 RBC (4.20 - 5.40 /CUMM) 4.36 Hgb (12.0 - 16.0 G/DL) 12.5 Hct (37 - 47 %) 37.6 MCV (81.0 - 99.0 FL) 86.2 MCH (27.0 - 31.0 PG) 28.6 RDW (11.5 - 14.5 %) 14.6 H Plt Count (130 - 400 /CUMM) 169 MPV (7.4 - 10.4 FL) 9.8 Gran % (42.2 - 75.2 %) 53.3 Lymphocytes % (20.5 - 51.1 %) 36.8 Monocytes % (1.7 - 9.3 %) 7.7 Eosinophils % (0 - 5 %) 1.5 Basophils % (0.0 - 2.0 %) 0.7 Absolute Granulocytes (1.4 - 6.5 /CUMM) 3.6 Absolute Lymphocytes (1.2 - 3.4 /CUMM) 2.5 Absolute Monocytes (0.10 - 0.60 /CUMM) 0.5 Absolute Eosinophils (0.0 - 0.7 /CUMM) 0.1 Absolute Basophils (0.0 - 0.2 /CUMM) 0 PUBS MCHC (33.0 - 37.0 G/DL) 33.2 Toxicology Urine Opiates Screen (>2000 NG/ML) < 100.00 Methadone Screen (>300 NG/ML) > 735 H Barbiturate Screen (>200 NG/ML) < 60 Ur Phencyclidine Scrn (>25 NG/ML) 7.10 Amphetamines Screen (>1000 NG/ML) 102 U Benzodiazepines Scrn (>200 NG/ML) < 85 Urine Cocaine Screen (>300 NG/ML) > 1000 H Urine Cannabis Screen (>50 NG/ML) < 5.00 Serum Alcohol (<10 MG/DL) < 10.0 Vital Signs Date Time Temp Pulse Resp B/P Pulse O2 O2 Flow FiO2 Ox Delivery Rate 06/11 1238 73 125/76 06/11 1234 73 125/76 06/11 0857 96.8 62 116/76 06/11 0856 96.8 62 116/76 06/10 2244 97.5 16 142/78 06/10 2119 68 16 138/66 06/10 1953 97.4 66 145/71 06/10 1951 97.4 66 145/71 06/10 1607 68 136/76 06/10 1600 68 136/76 06/10 1429 63 137/90 MSE Appears as stated age. Cooperative behavior, good,poor eye contact, listing to one side, eyes half-closed. slow speech rate and prosody. + psychomotor retardation. Mood just real tired Affect euthymic, appropriate, non-liable. Linear and goal directed thought process. Denies SI or HI. Does not appear to be responding to internal stimuli. Denies AVHs, paranoia, or delusions. I/J: limited A/P: Pt with MDD on MMf with sedation though patient notes will pass and ongoing mood complaints. As sertraline recently increased, will hold off on increase. As patient extremely sedated on MM, would consider cutting back slightly in the future. - Continue current medication regimen - Monitor closely for sedation and falls
--- NOTE | 2016-06-11 13:41 | NUR ---
PT IS COMPLIANT AND COOPERATIVE. MOOD IS STABLE WITH A CONSTRICTED AFFECT. PT DENIES SI AT THIS TIME, NO COMPLAINTS OFFERED. PT OVERALL WITHDRAWN IN ROOM- SLEEPING MUCH OF SAY. PT PRESENT ON UNIT FOR VITALS AND MEALS. PT INTERACTING WELL WITH OTHERS WHEN PRESENT IN COMMUNITY. PT HAS ATTENDED ONE GROUP TODAY. VITALS ARE STABLE, APPETITE IS GOOD.
--- NOTE | 2016-06-11 22:32 | NUR ---
PT HAS BEEN MOSTLY ISOLATIVE AND WITHDRAWN, REMAINING IN BED FOR MAJORITY OF EVENING. PT STATED FEELING WEAK AND NEEDING REST. WHEN VISIBLE ON UNIT PT IS PLEASANT AND SOCIAL. REFUSED WRAP UP MEETING. NO SI REPORTED. PT HAS A STABLE MOOD AND EUTHYMIC AFFECT.
[2016-06-12] VITALS (7 sets, daily range): BP systolic 128–145; BP diastolic 71–97
--- NOTE | 2016-06-12 09:18 | CP SOUTH PROGRESS NOTE PSYCH ---
Psych (Inpt) Progress Note Progress Note Include the following elements, when applicable: Involvement in the active treatment of the patient with behavioral observations of the patient and the patient's response to the treatment. Review of the ongoing treatment process in the context of the treatment plan. Indication of how multi-disciplinary staff members are carrying out the treatment plan. Plans for future interventions and recommendations for revision of the treatment plan. Liaison with other physicians/providers. Progress Note: Pt reports that does not want to take methadone earilier in the morning as it causes a great deal of sedation. She feels that taking it around 8-11am is fine as "I got nothing else to do." This is true at home as well as she does not work. Pt notes continued AHs of voices saying "bad things." Denies SI or HI. Mood "alright." Current Medications Sig/Libia Start time Last Medication Dose Route Stop Time Status Admin Folic Acid 1 MG DAILY 06/09 1332 DC 06/11 PO 06/11 1001 0849 Lorazepam 0.5 MG 06/12 AC 06/12 PO 06/12 2000 0843 Lorazepam 0.5 MG FOUR TIMES A DAY 06/11 1000 DC 06/11 PO 06/11 2101 2212 Lorazepam 2 MG Q2P PRN 06/09 1345 AC PO Lorazepam 1 MG Q2P PRN 06/09 1345 AC PO Methadone HCl 110 MG DAILY@06/10 0800 AC 06/11 PO 0850 Multivitamins 1 TAB DAILY 06/09 1332 AC 06/12 PO 0843 Nicotine 21 MG DAILY 06/10 1000 AC 06/12 TOP 0844 Olanzapine 7.5 MG 06/12 2200 UNVr PO Olanzapine 2.5 MG 06/11 0800 AC 06/12 PO 0843 Olanzapine 5 MG 06/10 2200 DC 06/11 PO 2212 Olanzapine 2.5 MG Q8P PRN 06/10 1230 AC 06/10 PO 1630 Sertraline HCl 100 MG 06/10 0800 AC 06/12 PO 0844 Thiamine HCl 100 MG DAILY 06/09 1332 DC 06/11 PO 06/11 1001 0849 Laboratory Tests 06/09 06/09 0950 0947 Chemistry Sodium (137 - 145 mmol/L) 140 Potassium (3.5 - 5.1 mmol/L) 4.1 Chloride (98 - 107 mmol/L) 104 Carbon Dioxide (22 - 30 mmol/L) 26 Anion Gap (5 - 16) 10 BUN (7 - 17 mg/dL) 17 Creatinine (0.5 - 1.0 mg/dL) 0.8 Estimated GFR (>60 ml/min) > 60 BUN/Creatinine Ratio (7 - 25 %) 21.3 Glucose (65 - 99 mg/dL) 83 Calcium (8.4 - 10.2 mg/dL) 8.7 Total Bilirubin (0.2 - 1.3 mg/dL) 0.4 AST (14 - 36 U/L) 18 ALT (9 - 52 U/L) 23 Alkaline Phosphatase (<127 U/L) 61 Troponin I (< 0.11 ng/ml) < 0.01 Total Protein (6.3 - 8.2 g/dL) 6.7 Albumin (3.5 - 5.0 g/dL) 3.8 Globulin (1.9 - 4.2 gm/dL) 2.9 Albumin/Globulin Ratio (1.1 - 2.2 %) 1.3 Hematology CBC w Diff NO MAN DIFF REQ WBC (4.8 - 10.8 /CUMM) 6.8 RBC (4.20 - 5.40 /CUMM) 4.36 Hgb (12.0 - 16.0 G/DL) 12.5 Hct (37 - 47 %) 37.6 MCV (81.0 - 99.0 FL) 86.2 MCH (27.0 - 31.0 PG) 28.6 RDW (11.5 - 14.5 %) 14.6 H Plt Count (130 - 400 /CUMM) 169 MPV (7.4 - 10.4 FL) 9.8 Gran % (42.2 - 75.2 %) 53.3 Lymphocytes % (20.5 - 51.1 %) 36.8 Monocytes % (1.7 - 9.3 %) 7.7 Eosinophils % (0 - 5 %) 1.5 Basophils % (0.0 - 2.0 %) 0.7 Absolute Granulocytes (1.4 - 6.5 /CUMM) 3.6 Absolute Lymphocytes (1.2 - 3.4 /CUMM) 2.5 Absolute Monocytes (0.10 - 0.60 /CUMM) 0.5 Absolute Eosinophils (0.0 - 0.7 /CUMM) 0.1 Absolute Basophils (0.0 - 0.2 /CUMM) 0 PUBS MCHC (33.0 - 37.0 G/DL) 33.2 Toxicology Urine Opiates Screen (>2000 NG/ML) < 100.00 Methadone Screen (>300 NG/ML) > 735 H Barbiturate Screen (>200 NG/ML) < 60 Ur Phencyclidine Scrn (>25 NG/ML) 7.10 Amphetamines Screen (>1000 NG/ML) 102 U Benzodiazepines Scrn (>200 NG/ML) < 85 Urine Cocaine Screen (>300 NG/ML) > 1000 H Urine Cannabis Screen (>50 NG/ML) < 5.00 Serum Alcohol (<10 MG/DL) < 10.0 Vital Signs Date Time Temp Pulse Resp B/P Pulse O2 O2 Flow FiO2 Ox Delivery Rate 06/12 0746 96.5 81 140/84 06/12 0843 96.5 81 140/84 06/11 1947 96.8 74 134/77 06/11 1944 96.8 74 134/77 06/11 1628 75 136/71 06/11 1621 75 136/71 06/11 1238 73 125/76 06/11 1234 73 125/76 MSE Appears as stated age. Cooperative behavior, good, appropriate eye contact. Nl speech rate and prosody. No psychomotor retardation or agitation. Mood alright Affect, irritable, constricted, appropriate, non-liable. Linear and goal directed thought process. Denies SI or HI. Does not appear to be responding to internal stimuli. +AHs of disparging voices, denies paranoia or delusions. I/J: limited A/P: Pt with ?MDD with psychotic features as well as OUD on MM. As continued AHs will increase zyprexa slightly. - Continue current medication regimen though patient would likely benefit, in terms of sedation from slightly decreased dose of methadone. - Increase zyprexa from 5mg to 7.5mg nightly
--- NOTE | 2016-06-12 14:23 | NUR ---
Pt is A&O X 3, complaints with medication and group therapies/ activities. interacts with other peers and staff members. pt is much more alert today took her shower/ personal hygiene, report good night sleep and appetite. vital sign is stable, mood is appropriate but with euthymic affect, denies thought of self harm and to someone else.
--- NOTE | 2016-06-12 20:30 | NUR ---
PT IS IN ROOM MOSTLY, LETHARGIC, SLEEPING THE MAJORITY OF THE TIME. PT IS DISORGANIZED AT TIMES WHILE AWAKE IN [place], THOUGH IS MOSTLY ORGANIZED IN SPEECH AND BEHAVIOR. PT MOOD IS STABLE, AFFECT IS EUTHYMIC TO FULL RANGE, COMMUNICATION IS NORMAL MOSTLY, BUT DISORGANIZED AT TIMES (ESPECIALLY APPARENT WHEN PT EMERGES FROM ROOM AFTER SLEEPING), AND APPETITE IS NORMAL. PT DENIES SI AT THIS TIME.
[2016-06-13] VITALS (8 sets, daily range): BP systolic 132–147; BP diastolic 74–78
--- NOTE | 2016-06-13 06:49 | NUR ---
PATIENT UP TO BATHROOM ONCE, OTHERWISE SLEPT ALL NIGHT.
--- NOTE | 2016-06-13 08:36 | CP SOUTH PROGRESS NOTE PSYCH ---
Psych (Inpt) Progress Note Progress Note Include the following elements, when applicable: Involvement in the active treatment of the patient with behavioral observations of the patient and the patient's response to the treatment. Review of the ongoing treatment process in the context of the treatment plan. Indication of how multi-disciplinary staff members are carrying out the treatment plan. Plans for future interventions and recommendations for revision of the treatment plan. Liaison with other physicians/providers. Progress Note: [I discussed this patient's progress to date, current mental status, treatment process in the context of the treatment plan, and discharge planning with staff/ team in the daily morning inpatient team meeting. I also met with the patient myself in individual session.] SUBJECTIVE: "I don't know how I feel." OBJECTIVE: Current Medications Sig/Libia Start time Last Medication Dose Route Stop Time Status Admin Lorazepam 0.5 MG 799,06/12 08 DC 06/12 PO 06/12 2000 2233 Lorazepam 2 MG Q2P PRN 06/09 1345 AC PO Lorazepam 1 MG Q2P PRN 06/09 1345 AC PO Methadone HCl 110 MG DAILY@06/10 0800 AC 06/13 PO 0831 Multivitamins 1 TAB DAILY 06/09 1332 AC 06/13 PO 0832 Nicotine 2 MG Q2 HRS NEEDED PRN 06/12 0930 AC 06/13 PO 1246 Nicotine 21 MG DAILY 06/10 1000 AC 06/13 TOP 1059 Olanzapine 10 MG 06/13 2200 AC PO Olanzapine 7.5 MG 0 06/12 2200 DC 06/12 PO 2234 Olanzapine 2.5 MG 06/11 0800 DC 06/13 PO 0832 Olanzapine 2.5 MG Q8P PRN 06/10 1230 DC 06/10 PO 1630 Sertraline HCl 100 MG 06/10 0800 AC 06/13 PO 0832 Valacyclovir HCl 500 MG DAILY 06/14 1000 AC PO Vital Signs Date Time Temp Pulse Resp B/P Pulse O2 O2 Flow FiO2 Ox Delivery Rate 06/13 0803 97.1 78 136/76 06/13 0759 97.1 78 136/76 06/12 1946 97.7 92 135/97 06/12 1651 73 128/71 06/12 1627 73 128/71 06/12 1320 72 145/79 06/12 1226 72 145/79 06/12 0846 96.5 81 140/84 06/12 0843 96.5 81 140/84 ASSESSMENT: Chart, progress notes, labs, VS, and medication list reviewed. Over the weekend (per progress notes), the patient appeared sedated. Zyprexa 2.5mg daily was continued and 5mg QHS was increased to 7.5mg QHS. Patient was also found on the unit with an e-cigarette vaping device and was placed on 24 hour visitor restriction and in paper scrubs. On encounter today, patient appeared more alert (than from weekend progress note reports) and was oriented to person, place and time. Speech was normal in rate, tone and volume. No evidence of psychomotor retardation or agitation. However, patient reported daytime sedation ? associated to scheduled Zyprexa 2.5mg QAM vs. QAM Methadone 110mg. Reviewed with patient that she is on Methadone 110mg daily, and recommended decreasing daytime methadone dose, which patient strongly resisted. She was agreeable to discontinuing Zyprexa 2.5mg QAM and increasing Zyprexa QHS dose to 10mg QHS. Patient reported depression of 10/10 (10 being the worst) and anxiety of 7/10 ( 10 being the worst) in the context of her mother's recent and separation from her children who are in the custody of her brother, Rodney. She reported that her children are in a safe and caring environment with her brother, but she misses them. She denied feeling worthless and guilty. She reported feelings of hopelessness and helplessness in the context of not having her children in her custody. Patient showed fair insight into her pattern of drug and alcohol use, and these behaviors not being safe, and how these behaviors would effect her children if they were in her care. She appeared motivated for inpatient rehab treatment to further support her in sobriety. She denied active and passive suicidal ideation, plans and intent today. She reported last having passive suicidal thoughts yesterday, and denied plan/intent yesterday. She denied homicidal ideation. She reported less intense, intermittent +AH calling her "bad names." Patient would not elaborate further on these bad names. She denied AH to be command in nature. She reported feeling safe on unit. Thought process was linear and goal-directed. Thought content was appropriate. Cognition was grossly intact. This database report writer processed e-cigarette event with patient from over the weekend. She reported that prior to admission to [facility], during her time in the ED, she had placed her e-cigarette in her sock, which had not been taken from her after admission to [facility]. She denied using e-cigarette and reported there was only vape juice in it. This database report writer thanked her for her honestly, but informed her that a utox was ordered today to r/o possible substance abuse while on unit, given reports of increased sedation over the weekend. Patient verbalized understanding of instruction. Patient requested to be restarted on Valtrex for herpes. No evidence of previously prescribed Valtrex in med claim history. Patient could not recall the name of her outpatient pharmacy to verify last use of this medication, or prescriber of this medication. PLAN: 1. Continue monitoring the patient on unit for safety, suicidal ideation, AH, and mood. 2. Discontinue Zyprexa 2.5mg QAM d/t day time sedation. Increase QHS Zyprexa to 10mg for AH/mood stabilization. 3. Continue Zoloft 100mg QAM for depression/anxiety. 4. Utox ordered for today. 5. HOD consult requested to evaluate need to restart Valtrex for herpes. 6. Dispo planning per primary team.
--- NOTE | 2016-06-13 08:40 | NUR ---
0830 PDD LEFT FOREARM NEGATIVE LESS THAN 5 MM
--- NOTE | 2016-06-13 14:44 | NUR ---
PT IS OUT IN COMMUNITY ITNERACTING WELL WITH STAFF AND PEERS. PT HAS BEEN ATTENDING GROUPS THUS FAR. PT MOOD IS STABLE WTIH A FULL RANGE AFFECT. PT GOAL THIS MORNING WAS TO TALK TO DR ABOUT HER MEDICATIONS BECAUSE SHE FEELS "OFF." PT DENIES SI THOUGHTS
--- NOTE | 2016-06-13 16:41 | SOCIAL WORKER PROG NOTE PSYCH ---
Social Work Progress Note Progress Note Met with Martha today, she was in bed sleeping - got up and meet with me. She stated she feels drowsy on the Zoloft - is happy she will be taking it at night so she won't be as drowsy. She has been to some groups today. She is hoping she can go to a residential rehab - like [facility]. She is aware that a referral was faxed to [facility] for a short-term (2 week) stay while waiting for a rehab bed. She stated she has thougts about "not wanting to be here", but no active plan or intent. She agreed to talk to staff if her depression/SI worsens. She reported she slept goo, appetite is Ok, rated her depression 0/10:8, and anxiety 0/10:8. She is interested in a referral to [facility] for (long-term 4-6 month program). Discussed with Sudha Roper LCSW referral to [facility] (as option for rehab).
--- NOTE | 2016-06-13 21:08 | NUR ---
PT HAS BEEN VISIBLE IN THE COMMUNITY INTERACTING WITH PEERS AND STAFF. PT IS HYPERACTIVE AND LOUD WHEN ON THE TELEPHONE BUT OTHERWISE OFFERS NO COMPLAINTS AT THIS TIME. PT DENIES HAVING SI THOUGHTS AT VS SIGNS.
[2016-06-14 00:32] VITALS: BP 138/68
--- NOTE | 2016-06-14 05:41 | NUR ---
PT APPEARED TO SLEEP WELL AFTER RETIRING EARLY.
[2016-06-14 07:57] VITALS: BP 125/82
[2016-06-14 07:59] VITALS: BP 125/82
--- NOTE | 2016-06-14 11:09 | SOCIAL WORKER PROG NOTE PSYCH ---
Social Work Progress Note Progress Note Patient continues to report passive SI/HI (towards ex boyfriend who is in alf ) today. Patient continues to express her desire for residential substance abuse treatment. Patient completed phone screening this AM with [facility]. Patient expressed interest in their program but is unsure if she will be accepted at this time. Patient also is interested in [facility] [place] and [facility]. [facility] informed me yesterday that they would be reviewing patients clinical information yesterday and would be in touch to set up phone screening. I have not heard back from patients brother, Rodney, who I reached out to about setting up a family meeting. He appeared resistent when I initially spoke to him but stated he would call me back to arrange.
[2016-06-14 12:13] VITALS: BP 149/84
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
--- NOTE | 2016-06-14 14:20 | NUR ---
PT IS COMPLIANT AND COOPERATIVE. PT IS OUT IN COMMUNITY INTERACTING WELL WITH STAFF AND PEERS. PT IS ATTENDING GROUPS. PT MOOD IS STABLE WITH A FULL RANGE AFFECT. PT DENIES SI THOUGHTS. PT REPORTED THIS MORNING SHE FEELS LIKE SHE MIGHT ACT "BADLY" JUST HOW SHE FEELS. HOWEVER, NO BEHAVIOR ISSUES NOTED.
[2016-06-14 15:56] VITALS: BP 142/63
--- NOTE | 2016-06-14 22:26 | NUR ---
Pt is irritable towards the staff this meka shift, Took the bp cuff while it's still working. Then pt stayed in her room most of the shift. Will continue to monitor the pt overnight.
--- NOTE | 2016-06-15 04:06 | NUR ---
PT APPEARED TO SLEEP. PT FOUND WITH VAPOR OBJECT AGAIN- PT RELEGATED TO SCRUBS FOR 24 HOURS, NO VISITORS FOR 24 HOURS.
[2016-06-15 07:37] VITALS: BP 123/76
--- NOTE | 2016-06-15 13:01 | NUR ---
PT VISIBLE IN THE MILIEU TODAY. SHE HAS BEEN IN SOME GROUPS TODAY BUT NOT ALL OF THEM. PT REMAINS IN [facility] FOR NEGATIVE BEHAVIOR YESTERDAY, AND UNABLE TO RECEIVE VISITORS. IN THE MILIEU PT HAS BEEN COOPERATIVE TODAY, AND DENIES THOUGHTS OF HURTING SELF.
--- NOTE | 2016-06-15 15:32 | CP SOUTH PROGRESS NOTE PSYCH ---
Psych (Inpt) Progress Note Progress Note Include the following elements, when applicable: Involvement in the active treatment of the patient with behavioral observations of the patient and the patient's response to the treatment. Review of the ongoing treatment process in the context of the treatment plan. Indication of how multi-disciplinary staff members are carrying out the treatment plan. Plans for future interventions and recommendations for revision of the treatment plan. Liaison with other physicians/providers. Progress Note: [I discussed this patient's progress to date, current mental status, treatment process in the context of the treatment plan, and discharge planning with staff/ team in the daily morning inpatient team meeting. I also met with the patient myself in individual session.] SUBJECTIVE: "Why is everyone so mean to me?" OBJECTIVE: Current Medications Sig/Libia Start time Last Medication Dose Route Stop Time Status Admin Methadone HCl 110 MG DAILY@0800 06/10 0800 AC 06/15 PO 0750 Multivitamins 1 TAB DAILY 06/09 1332 AC 06/15 PO 0749 Nicotine 2 MG Q1 NEEDED PRN 06/15 1530 AC PO Nicotine 2 MG Q2 HRS NEEDED PRN 06/12 0930 DC 06/14 PO 1447 Nicotine 21 MG DAILY 06/10 1000 AC 06/15 TOP 0748 Olanzapine 5 MG 06/16 0800 AC PO Olanzapine 2.5 MG ONE TIME ONE 06/15 1530 DC PO 06/15 1531 Olanzapine 2.5 MG ONE TIME ONE 06/15 1000 CAN PO 06/15 1001 Olanzapine 2.5 MG 0800 06/15 0800 DC 06/15 PO 0749 Olanzapine 10 MG 2200 06/13 2200 AC 06/14 PO 2227 Sertraline HCl 100 MG 06/10 0800 AC 06/15 PO 0749 Valacyclovir HCl 500 MG DAILY 06/14 1000 AC 06/15 PO 0749 Vital Signs Date Time Temp Pulse Resp B/P Pulse O2 O2 Flow FiO2 Ox Delivery Rate 06/15 0737 96.4 66 123/76 06/14 1556 80 142/63 ASSESSMENT: Chart, progress notes, VS, labs, and medication list reviewed. Per nursing reports, last evening the patient was found again with an e- cigarette vaping device which was brought in by a visitor. Patient was placed on 24 hour visitor restriction and into paper scrubs for 24 hours. Given that this is the patient's second infraction, patient will remain on visitor restriction for another 24 hours. Patient was offered to sign a termination of voluntary form, however refused. Met with patient today together with Sudha Roper LCSW. Patient presented A&Ox3. Speech was pressured, hyperverbal, and patient was observed with an irritable edge speaking disrespectfully about nursing staff who had previously set firm limits with her given her inappropriate behaviors. Patient demonstrated limited insight into her behaviors over the past 24 hours and could not fathom the reason for why she could not use e-cigarette vaping device on unit. Patient reported having nicotine cravings. This technical writer informed her that her nicotine gum would be adjusted for more frequent dosing. Patient seemed to accept this without issue. Patient reported worsened +AH of voices d/t limit setting from staff. Patient would not describe the content of these voices but stated they were not command in nature. She reported passive suicidal thoughts again in the context of limit setting. She denied suicidal plans and intent. She gave a safety promise while on unit. She denied visual hallucinations. There was no evidence of paranoia or mahogany delusions. Thought process was concrete. Thought content was mostly appropriate. Cognition was grossly intact. Patient was agreeable to increasing Zyprexa QAM from 2.5mg to 5mg to further target AH. Patient reported tolerating medications well and denied untoward medication effects. PLAN: 1. Continue monitoring the patient on unit for safety, mood and AH. 2. Nicotine gum 2mg J2ahiei prn changed to Q1hour prn for nicotine craving. 3. On visitor restriction for tonight, will reevaluate in 24 hours. 4. Increase Zyprexa from 2.5mg QAM to 5mg QAM for AH. One time dose of 2.5mg Zyprexa ordered now. 5. Dispo planning per primary team.
--- NOTE | 2016-06-15 16:29 | SOCIAL WORKER PROG NOTE PSYCH ---
Social Work Progress Note Progress Note Met with patient together today with Nina Hampton APRN. Patient reported feeling frustrated by staff behavior and feeling punished due to being caught with vape last evening. This automobile and property underwriter informed patient that this type of behavior will not be acceptable at residential rehab and she could be putting herself at risk for being discharged in that type of setting. I have not heard back from [facility] regarding the phone screening that patient completed yesterday. I am still waiting to hear back from [facility] to see if they reviewed patients clinical and can phone screen her. Patient is anxious over aftercare plans, I informed her I will follow up with both programs in the AM. Patient did endorse +SI today with no specific plan.
--- NOTE | 2016-06-15 22:03 | NUR ---
PT IS ISOLATIVE AND WITHDRAWN, REMAINING IN BED FOR MAJORITY OF EVENING. MINIMAL INTERACTION WITH PEERS AND STAFF. REFUSED WRAP UP MEETING. NO COMPLAINTS REPORTED. PT DID DISCLOSE THAT SHE HAD SI BUT SAYS SHE WOULD NOT TRY TO HARM SELF WHILE ON UNIT. PT HAS A STABLE MOOD AND EUTHYMIC AFFECT.
[2016-06-16 08:02] VITALS: BP 120/69
--- NOTE | 2016-06-16 12:10 | SOCIAL WORKER PROG NOTE PSYCH ---
Social Work Progress Note Progress Note Patient continues to express interest for residential rehab and expresses anxiety and depression over the bed wait. Together today we left voicemails for [facility], [facility] and [facility]. This afternoon patient will be screened for [facility] but I was notified that they do not have a female bed available until of June. [facility] also informed me today that there is a 6-8 week bed wait and that they would like the patient to be stabalized for at least 30 days before entering their program. Charline, marketing services coordinator at [facility], is aware that patient is on waiting list for [facility] and may go there post discharge from the hospital. Charline agreed to hold on to patients referral and if she goes to [facility] then they can revisit her record then and see if bed is available. Patient is open to going to [facility] once bed becomes available and has agreed to call [phone] if needed. Patient continues to endorse +SI at present and expresses desire to wear her street clothes and have visitors again. Patient is aware that this will be discussed with the team and at present.
[2016-06-16 12:24] VITALS: BP 114/72
--- NOTE | 2016-06-16 13:29 | CP SOUTH PROGRESS NOTE PSYCH ---
Psych (Inpt) Progress Note Progress Note Include the following elements, when applicable: Involvement in the active treatment of the patient with behavioral observations of the patient and the patient's response to the treatment. Review of the ongoing treatment process in the context of the treatment plan. Indication of how multi-disciplinary staff members are carrying out the treatment plan. Plans for future interventions and recommendations for revision of the treatment plan. Liaison with other physicians/providers. Progress Note: [I discussed this patient's progress to date, current mental status, treatment process in the context of the treatment plan, and discharge planning with staff/ team in the daily morning inpatient team meeting. I also met with the patient myself in individual session.] SUBJECTIVE: "I really want to get into rehab." OBJECTIVE: Vital Signs Date Time Temp Pulse Resp B/P Pulse O2 O2 Flow FiO2 Ox Delivery Rate 06/16 1224 75 114/72 06/16 0802 96.8 66 120/69 Current Medications Sig/Libia Start time Last Medication Dose Route Stop Time Status Admin Methadone HCl 110 MG DAILY@06/10 0800 AC 06/16 PO 0748 Multivitamins 1 TAB DAILY 06/09 1332 AC 06/16 PO 0748 Nicotine 2 MG Q1 NEEDED PRN 06/15 1530 AC 06/16 PO 1059 Nicotine 21 MG DAILY 06/10 1000 AC 06/16 TOP 0748 Olanzapine 5 MG 1300 06/17 1300 AC PO Olanzapine 2.5 MG Q8P PRN 06/16 1300 DC PO Olanzapine 5 MG 06/16 0800 AC 06/16 PO 0748 Olanzapine 10 MG 2200 06/13 2200 AC 06/15 PO 2206 Sertraline HCl 150 MG 06/17 0800 UNVr PO Sertraline HCl 100 MG 06/10 0800 DC 06/16 PO 0748 Valacyclovir HCl 500 MG DAILY 06/14 1000 AC 06/16 PO 0749 ASSESSMENT: Chart, progress notes, VS, labs and medication list reviewed. Met with patient today. Appeared alert and oriented to person, place and time. Affect appeared expansive. Mood was "anxious" secondary to uncertainty of where she will be discharged to. Speech remained pressured and hyperverbal. Continued to demonstrate poor insight into the reason for why visitor restriction was set into motion, due to prior visitor bringing her in an e-cigarette vaping device. Patient reported reduced nicotine cravings since yesterday and has been utilizing prn Nicotine gum. [facility] appears [facility] and eventual [facility] substance abuse program. She continued to report high anxiety and depression; anxiety of 7/10 (10 being the worst) and depression of 9/10 (10 being the worst). Recommended trial of [place] for mood stabilization/depression/anti-suicidal properties given history of suicide attempts and chronic suicidal thoughts. Reviewed the risks/benefit/SE profiles of [place] including kidney/thyroid function risk, tremor, metabolic risks, and toxicity; patient also informed of need for routine serum monitoring, good hydration, and avoiding use of Ibuprofen. Patient declined [place] trial d/ t required serum monitoring; also declined trials of Depakote and Tegretol d/t required serum monitoring. Patient reported improvement in AH, reported AH of less intensity, however continues to hear AH of "mean" voices. Denied these were command in nature. Patient agreeable to increase daily Zyprexa and requested a noon dose be added. She denied passive and active suicidal ideation today, denied plans/intent. She denied homicidal ideation and visual hallucinations. Thought process appeared distracted, no evidence of overt internal stimulation, delusions or paranoia. Thought content was mostly appropriate. Cognition was grossly intact. Patient making slow progess. Will increase Zyprexa from 5mg QAM/10mg QHS to 5mg QAM/5mg at 1PM/10mg QHS for AH/mood stabilization. Will increase Zoloft to 150mg tomorrow to further target depression/anxiety. Reviewed patient's behavior on unit with nursing staff, Marly Su [facility] investor relations director, and Sudha Roper LCSW. Per team, patient will be allowed to wear her own clothing. Per team, patient will remain on visitor restriction for unit safety x 24 hours. Will review possibility of lifting visitor restriction in team meeting tomorrow morning. Patient informed of decision and agreeable. PLAN: 1. Continue monitoring patient on unit for safety, suicidal ideation, and mood. 2. Patient earned back privilege to wear own clothing. 3. Will remain on visitor restriction x 24 hours. Will discuss with treatment team tomorrow morning about lifting restriction if behavior improves. 4. Increase Zyprexa to 5mg QAM/5mg Q1PM/10mg QHS for mood stabilization and AH. 5. Will increase Zoloft to 150mg daily tomorrow to further target depression/ anxiety. 6. Dispo planning per primary team.
--- NOTE | 2016-06-16 13:55 | NUR ---
PT IS COMPLIANT AND COOPERATIVE. MOOD IS STABLE WITH A FULL RANGE OF AFFECT. PT CAN HAVE AN IRRITABLE EDGE AND VOICE CAN BE LOUD AT TIMES. PT DENIES SI AT THIS TIME, NO COMPLAINTS OFFERED. PT IS PRESENT IN THE COMMUNITY AND INTERACTING WITH PEERS AND STAFF. PT IS ATTENDING SOME GROUPS. VITALS ARE STABLE, APPETITE IS GOOD.
[2016-06-16 16:18] VITALS: BP 146/77
[2016-06-16 20:12] VITALS: BP 131/77
--- NOTE | 2016-06-16 21:10 | NUR ---
PT IS ISOLATIVE/WITHDRAWN, SPENDING LONG PERIODS OF TIME IN PT ROOM, OUT OF MILIEU. PT IS LETHRGIC, SPENDING LONG PERIODS OF TIME SLEEPING WHILE IN PT ROOM THOUGHOUT THE EVENING. MOOD IS STABLE, AFFECT IS EUTHYMIC TO FULL RANGE, COMMUNICATION IS NORMAL, AND APPETITE IS NORMAL. PT DENIES SI AT THIS TIME.
[2016-06-17 08:02] VITALS: BP 127/72
[2016-06-17 12:13] VITALS: BP 151/65
--- NOTE | 2016-06-17 13:15 | SOCIAL WORKER PROG NOTE PSYCH ---
Social Work Progress Note Progress Note Patient continues to endorse passive SI and AH. Patient expresses concern over her discharge plan and is aware there are waiting lists at all facilities. Patient was suppose to complete phone screening at [facility] yesterday but never received phone call to complete. I have left voicemail today with Elise at [facility] requesting for patient to complete screening today. Patient is open to most programs but needs a program that will accomodate her methadone maintenance which makes options slim. Patient is aware of this and does report feeling somewhat discouraged at this time. Patient is aware that this speech writer will be out of the office next week, but plans to work with covering SW to continue seeking bed at rehab and[facility]or [facility].
--- NOTE | 2016-06-17 14:09 | CP SOUTH PROGRESS NOTE PSYCH ---
Psych (Inpt) Progress Note Progress Note Include the following elements, when applicable: Involvement in the active treatment of the patient with behavioral observations of the patient and the patient's response to the treatment. Review of the ongoing treatment process in the context of the treatment plan. Indication of how multi-disciplinary staff members are carrying out the treatment plan. Plans for future interventions and recommendations for revision of the treatment plan. Liaison with other physicians/providers. Progress Note: [I discussed this patient's progress to date, current mental status, treatment process in the context of the treatment plan, and discharge planning with staff/ team in the daily morning inpatient team meeting. I also met with the patient myself in individual session.] SUBJECTIVE: "I felt sad last night." OBJECTIVE: Current Medications Sig/Libia Start time Last Medication Dose Route Stop Time Status Admin Methadone HCl 110 MG DAILY@0800 06/17 0830 AC 06/17 PO 0830 Methadone HCl 110 MG DAILY@0800 06/10 0800 DC 06/16 PO 0748 Multivitamins 1 TAB DAILY 06/09 1332 AC 06/17 PO 0810 Nicotine 2 MG Q1 NEEDED PRN 06/15 1530 AC 06/16 PO 1059 Nicotine 21 MG DAILY 06/10 1000 AC 06/17 TOP 0810 Olanzapine 5 MG 1300 06/17 1300 AC 06/17 PO 1315 Olanzapine 2.5 MG Q8P PRN 06/16 1300 DC PO Olanzapine 5 MG 06/16 0800 AC 06/17 PO 0810 Olanzapine 10 MG 2200 06/13 2200 AC 06/16 PO 2220 Sertraline HCl 150 MG 06/17 0800 AC 06/17 PO 0810 Sertraline HCl 100 MG 00 06/10 0800 DC 06/16 PO 0748 Valacyclovir HCl 500 MG DAILY 06/14 1000 AC 06/17 PO 0810 Vital Signs Date Time Temp Pulse Resp B/P Pulse O2 O2 Flow FiO2 Ox Delivery Rate 06/17 1213 74 151/65 06/17 0802 95.0 82 127/72 06/16 2011 96.6 99 131/77 06/16 1618 73 146/77 ASSESSMENT: Met with the patient today, she presented A&Ox3. Speech less pressured than in previous encounters. Eye contact was appropriate. Affect appeared less expansive. Mood was "sad." Patient reported thinking about her recently mother last night and became tearful. Reported she was able to cope through feelings and act safely. She reported attending milieu groups this morning to process feelings, which had good effect. She reported anxiety of 6/10 (10 being the worst) and sadness/depression of 7/10 (10 being the worst). She denied feeling helpless and guilty. She reported feeling hopeless and worthless. She denied active and passive suicidal ideation, plans and intent. She denied homicidal ideation. She continued to reported AH of "mean" voices, but reported AH were quieter since increase in Zyprexa. She denied AH to be command in nature. She denied visual hallucinations. There was no evidence of paranoia or delusions. Thought process was concrete. Thought content was appropriate. Cognition was grossly intact. She reported sleep and appetite were good. Patient reported tolerating increase in Zoloft from 100mg QAM to 150mg QAM well and denied untoward medication effects. She reported some daytime tiredness from additional 1PM Zyprexa 5mg, however reported a reduction in AH from added dose. Reviewed with patient that sedation is a SE of medication, and encouraged her to give herself time to adjust to dose. Reviewed with patient that 1PM dose could be added to QHS dose if continued sedation occurs over weekend. Patient verbalized understanding, and was agreeable to continue dose at 1PM. PLAN: 1. Continue monitoring the patient on unit for safety, mood, psychosis, and suicidal ideation. 2. Continue current medications. 3. Consider rescheduling Q1PM Zyprexa 5mg to HS (for total dose of 15mg QHS) if continued afternoon sedation. 4. Dispo planning per primary team.
--- NOTE | 2016-06-17 14:57 | NUR ---
PT IS COMPLIANT AND COOPERATIVE. MOOD IS STABLE WITH A FULL RANGE OF AFFECT. PT DENIES SI AT THIS TIME, NO COMPLAINTS OFFERED. PT SPEECH TENDS TO BE LOUD- PT CAN BE HYPERVERBAL AT TIMES. PT IS PRESENT IN THE COMMUNITY AND INTERACTING WELL WITH PEERS AND STAFF. PT IS ATTENDING MOST GROUPS. VITALS ARE STABLE, APPETITE IS GOOD.
[2016-06-17 16:14] VITALS: BP 143/78
--- NOTE | 2016-06-17 21:20 | NUR ---
Pt is in bed during change of shift no interaction was seen or observed during the shift. pt refused vital signs. Will continue to monitor the pt overnight.
[2016-06-18 07:51] VITALS: BP 143/68
--- NOTE | 2016-06-18 11:29 | CP SOUTH PROGRESS NOTE PSYCH ---
Psych (Inpt) Progress Note Progress Note Include the following elements, when applicable: Involvement in the active treatment of the patient with behavioral observations of the patient and the patient's response to the treatment. Review of the ongoing treatment process in the context of the treatment plan. Indication of how multi-disciplinary staff members are carrying out the treatment plan. Plans for future interventions and recommendations for revision of the treatment plan. Liaison with other physicians/providers. Progress Note: Notes reviewed, d/w nursing staff. Interviewed patient this morning. Pleasant, cooperative. Multiple somatic complaints: lower back pain without radiation, nasal dryness with some bleeding. She is worried "I have a hole in my nose from cocaine". We discussed saline nasal spray which she was agreeable to trying. Says mood is "ok", denies SI/HI, denies AVH. Vitals and labs rev'd and wnl. MSE: Well groomed appropriately dresseed female, cooperative with interview, no abn mvmts. Mildly pressured speech, o/w wnl. Mood "ok" affect euthymic, mildly labile, congruent. TP mildly preoccupied, TC focused on somatic complaints. Denies SI/HI. Denies perceptual disturbance. Cognition grossly intact. I/J fair. A/P: Try saline nose spray for dry mucus membranes. Try PRN ibuprofen for LBP of likely MSK etiology. O/w cont plan per primary team.
[2016-06-18 11:54] VITALS: BP 140/60
--- NOTE | 2016-06-18 13:54 | NUR ---
PT IS COMPLIANT AND COOPEARTIVE. PT MOOD IS STABLE WITH A FULL RANGE AFFECT. PT IS OUT IN COMMUNITY ITNERACTING WELL WITH STAFF AND PEERS. PT CAN BE LOUD AT TIMES AND NEEDS REDIRECTION TO USE A SOFTER VOICE. PT IS ATTENDING SOME GROUPS. PT DENIES SI THOUGHTS
[2016-06-18 15:50] VITALS: BP 135/75
[2016-06-18 19:26] VITALS: BP 130/78
--- NOTE | 2016-06-18 19:57 | NUR ---
PT IS APPROPRIATE TO THE UNIT AND CALM, COOPERATIVE, COMPLIANT. PT HAS BEEN IN ROOM SLEEPING FOR MOST OF EVENING SHIFT. OOB FOR VS/MEDS/DINNER. PT ENGAGES WITH OTHERS WHEN SHE IS UP. CURRENTLY ALLOWED TO WEAR CLOTHES BUT REMAINS ON VISITOR RESTRICTION DUE TO CONTRABAND BEING FOUND X2 TIMES. VS ARE STABLE AND PT DENIES ANY SI/HI TO THIS MHW.
--- NOTE | 2016-06-19 06:31 | NUR ---
PT APPEARED TO SLEEP. NO VISITORS DUE TO VAPING ON UNIT X 2.
[2016-06-19 07:42] VITALS: BP 139/93
[2016-06-19 12:10] VITALS: BP 132/79
--- NOTE | 2016-06-19 13:22 | CP SOUTH PROGRESS NOTE PSYCH ---
Psych (Inpt) Progress Note Progress Note Include the following elements, when applicable: Involvement in the active treatment of the patient with behavioral observations of the patient and the patient's response to the treatment. Review of the ongoing treatment process in the context of the treatment plan. Indication of how multi-disciplinary staff members are carrying out the treatment plan. Plans for future interventions and recommendations for revision of the treatment plan. Liaison with other physicians/providers. Progress Note: Notes reviewed, d/w nursing staff. Interviewed patient this morning. Again, on interview today she is pleasant and cooperative, highly somatically preoccupied. Despite our discussion yesterday about trying ibuprofen for her low back pain she has not tried this yet. She says she will do this today. She again appropriately requests heating packs for low back pain and these were ordered for her. She says her mood is "pretty good ", denies SI or HI today. Her issue with nosebleeds has resolved spontaneously. Vitals and labs rev'd and wnl. MSE: Well groomed appropriately dresseed female, cooperative with interview, no abn mvmts. Mildly pressured speech, o/w wnl. Mood "pretty good" affect euthymic, mildly labile, congruent. TP mildly preoccupied, TC focused on somatic complaints. Denies SI/HI. Denies perceptual disturbance. Cognition grossly intact. I/J fair. A/P: Continue present management. Encourage as needed use of ibuprofen and heat packs for low back pain.
--- NOTE | 2016-06-19 13:29 | NUR ---
PT IS OUT IN COMMUNITY INTERACTING WITH STAFF AND PEERS. PT WAS IRRITABLE THIS MORNING YELLING OUT,"I'M GOING TO BE BAD". PT IS ACTIVE IN SOME GROUPS. PT BEHAVIOR HAS BEEN REDIRECTABLE TODAY. PT DENIES SI THOUGHTS
[2016-06-19 15:47] VITALS: BP 135/76
[2016-06-19 19:57] VITALS: BP 132/84
--- NOTE | 2016-06-19 21:15 | NUR ---
PT IS STABLE WITH FULL RANGE OF AFFECT. PT HAS BEEN IN PT ROOM FOR ENTIRE EVENING SHIFT. OOB FOR VS, MEDS, DINNER. PT IS VERY LETHARGIC. SHE IS DRESSED IN CLOTHES WITH HER HAIR EXTENSIONS IN BUT IS STILL ON A VISITOR RESTRICTION DUE TO CONTRABAND FOUND X2 TIMES. PT HAS OTHERWISE BEEN POLITE, APPROPRIATE AND COMPLIANT. VS ARE STABLE AND DENIES ANY SI/HI TO THIS MHW.
--- NOTE | 2016-06-20 06:00 | NUR ---
PATIENT SLEPT ALL NIGHT.
--- NOTE | 2016-06-20 06:11 | NUR ---
LATE ENTRY: ON 06/20/16 AT APPROXIMATELY 2245, PATIENT RUSHED OUT OF HER ROOM AND BEGAN YELLING AT STAFF; SHE ACCUSED STAFF OF SHAVING OFF PART OF HER LEFT EYEBROW; STAFF INSPECTED PATIENT'S FACE AND BOTH OF HER EYEBROWS APPEARED TO BE INTACT; SHE REFUSED REDIRECTION; SECURITY CALLED TO UNIT; MEMBER SERVICES REPRESENTATIVE ALSO INFORMED PATIENT THAT HE DID NOT SEE ANY MISSING SECTIONS OF HER EYEBROW; PATIENT REMAINED IRRITABLE, VERBALLY ABUSING STAFF; SHE DID CALM DOWN AND RETURNED TO HER ROOM, AND REFUSED TO DISCUSS SUBJECT FURTHER.
[2016-06-20 08:01] VITALS: BP 144/85
[2016-06-20 12:28] VITALS: BP 137/72
--- NOTE | 2016-06-20 12:51 | CP SOUTH PROGRESS NOTE PSYCH ---
Psych (Inpt) Progress Note Progress Note Include the following elements, when applicable: Involvement in the active treatment of the patient with behavioral observations of the patient and the patient's response to the treatment. Review of the ongoing treatment process in the context of the treatment plan. Indication of how multi-disciplinary staff members are carrying out the treatment plan. Plans for future interventions and recommendations for revision of the treatment plan. Liaison with other physicians/providers. Progress Note: [I discussed this patient's progress to date, current mental status, treatment process in the context of the treatment plan, and discharge planning with staff/ team in the daily morning inpatient team meeting. I also met with the patient myself in individual session.] SUBJECTIVE: "When will I get into rehab?" OBJECTIVE: Current Medications Sig/Libia Start time Last Medication Dose Route Stop Time Status Admin Diphenhydramine HCl 50 MG AT BEDTIME PRN 06/18 1145 AC PO Ibuprofen 600 MG Q6P PRN 06/18 1130 AC 06/19 PO 1130 Methadone HCl 110 MG DAILY@0800 06/17 0830 AC 06/20 PO 0825 Multivitamins 1 TAB DAILY 06/09 1332 AC 06/20 PO 0802 Nicotine 2 MG Q1 NEEDED PRN 06/15 1530 AC 06/20 PO 1203 Nicotine 21 MG DAILY 06/10 1000 AC 06/20 TOP 0803 Olanzapine 5 MG 1300 06/17 1300 AC 06/20 PO 1203 Olanzapine 5 MG 0806/16 0800 AC 06/20 PO 0802 Olanzapine 10 MG 2200 06/13 2200 AC 06/19 PO 2237 Sertraline HCl 150 MG 06/17 0800 AC 06/20 PO 0802 Sodium Chloride 2 SPRAY Q4P PRN 06/18 1130 AC TEDDY Vital Signs Date Time Temp Pulse Resp B/P Pulse O2 O2 Flow FiO2 Ox Delivery Rate 06/20 1228 80 137/72 06/20 0801 97.2 77 144/85 06/19 1957 96.3 82 132/84 06/19 1547 78 135/76 ASSESSMENT: Chart, progress notes, VS, labs and medication list reviewed. Discussed patient's treatment progress w/ nursing, who reported she had a behavioral outburst yesterday and was under the belief that nursing staff shaved off a piece of her eye brow. Patient was later able to deescalate and readjust to milieu and nursing limits. Met with patient today who presented alert and oriented to person, place and time. Eye contact was appropriate. Speech was loud, normal in rate and tone. She expressed frustration over waiting process for rehab programs. Appeared very eager to transition from inpatient psychiatry to inpatient rehab for substance abuse treatment. 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 Patient fears relapse, and demonstrated some insight into the risks of this lifestyle. She reported that she could not return to her brother's home d/t him having custody of her children, and her being unable to reside with them. She also refused primary tx team to have contact with her family, and refused scheduling a family meeting. Patient further refused IOP level of care, as this would not provide her with a place to stay. Discussed with the patient potential barriers to her being directly discharged to an inpatient rehab (i.e., availability of rehab beds). Reviewed with patient that [facility] referred her to [facility], and now awaiting response about their bed availability. Patient showed a low frustration tolerance and showed limited understanding that there are waiting lists associated with C[facility] and rehab beds. Patient reported her mood as "frustrated." She reported anxiety of 5/10 (10 being the worst) related to the uncertainty about where she will be discharged to. She reported depression of 4/10 (10 being the worst). She denied passive and active suicidal ideation, plans and intent. She denied homicidal ideation. Reported a significant improvement in AH which she denied were command in nature. Reported occasionally hearing "very quiet" voices. She denied visual hallucinations. There was no evidence of paranoia or delusions. Thought process remained concrete. Thought content was appropriate. Cognition was grossly intact. Judgement remains limited. Patient reported tolerating all medications well and denied untoward medication effects. PLAN: 1. Continue monitoring the patient on unit for safety, suicidal ideation, and AH. 2. Continue current medication. 3. Continue visitor restricti per CPS treatment team decision. 4. Dispo planning per primary team.
--- NOTE | 2016-06-20 13:33 | SOCIAL WORKER PROG NOTE PSYCH ---
Social Work Progress Note Progress Note Patient seen individually to asssess progress and status. Waiting on new drom [facility] regarding status for bed. Also, patient is calling [facility] daily, and did so today in order to get into that program. 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 Patient is very animated, and extremely anxious to be discharged. She is requesting that it be reviewed that she could have visitor(s), as it has been weeks since the rule was broken that resulted in the bas, and she has been pleading her case to me. I told her I would bring it up in the team meeting in the morning. Called Narayan of [facility] and left message that we are still seeking bed for potential discharge who is waiting for a rehab bed.
--- NOTE | 2016-06-20 14:29 | NUR ---
PT HAS BEEN OUT ON THE UNIT INTERACTING WITH STAFF AND PEERS. PT NEEDS DIRECTION AT TIMES FROM YELLING OR RUNNING AROUND THE UNIT. PT MOOD IS STABLE WITH A FULL RANGE AFFECT. PT IS ACTIVE IN GROUPS. PT IS STILL ON A VISTOR RESTRICTION BUT ALLOWED HER CLOTHES. PT DENIES SI THOUGHTS.
[2016-06-20 16:01] VITALS: BP 138/70
[2016-06-20 19:48] VITALS: BP 131/73
--- NOTE | 2016-06-20 21:59 | NUR ---
PT IS ISOLATIVE AND WITHDRAWN, REMAINING IN BED FOR MAJORITY OF EVENING. MINIMAL INTERACTION WITH PEERS OR STAFF. REFUSED WRAP UP MEETING. NO COMPLAINTS OR SI REPORTED. PT HAS A STABLE MOOD AND EUTHYMIC AFFECT.
--- NOTE | 2016-06-21 04:30 | NUR ---
SLEPT WELL AWAKE ONCE TO THE BATHROOM.
[2016-06-21 07:58] VITALS: BP 96/68
--- NOTE | 2016-06-21 11:40 | NUR ---
PT ATTENDED ONLY A HALF HOUR OF FOCUS GROUP THIS MORNING. SHE IS LOUD AT TIMES AND TODAY WAS ACCUSING HER PEERS OF "STARING AT HER". PT WAS ABLE TO BE REDIRECTED. SHE DENIES SUICIDAL THOUGHTS OR THOUGHTS OF SELF HARM AT THIS ITME
--- NOTE | 2016-06-21 11:41 | CP SOUTH PROGRESS NOTE PSYCH ---
Psych (Inpt) Progress Note Progress Note Include the following elements, when applicable: Involvement in the active treatment of the patient with behavioral observations of the patient and the patient's response to the treatment. Review of the ongoing treatment process in the context of the treatment plan. Indication of how multi-disciplinary staff members are carrying out the treatment plan. Plans for future interventions and recommendations for revision of the treatment plan. Liaison with other physicians/providers. Progress Note: [I discussed this patient's progress to date, current mental status, treatment process in the context of the treatment plan, and discharge planning with staff/ team in the daily morning inpatient team meeting. I also met with the patient myself in individual session.] SUBJECTIVE: "I won't be safe if I'm discharged." OBJECTIVE: Current Medications Sig/Libia Start time Last Medication Dose Route Stop Time Status Admin Diphenhydramine HCl 50 MG AT BEDTIME PRN 06/18 1145 AC PO Ibuprofen 600 MG Q6P PRN 06/18 1130 AC 06/19 PO 1130 Methadone HCl 110 MG DAILY@0806/17 0830 AC 06/21 PO 0812 Multivitamins 1 TAB DAILY 06/09 1332 AC 06/21 PO 0803 Nicotine 2 MG Q1 NEEDED PRN 06/15 1530 AC 06/20 PO 1203 Nicotine 21 MG DAILY 06/10 1000 AC 06/21 TOP 0804 Olanzapine 5 MG 1300 06/17 1300 AC 06/20 PO 1203 Olanzapine 5 MG 0806/16 0800 AC 06/21 PO 0803 Olanzapine 10 MG 2200 06/13 2200 AC 06/20 PO 2235 Sertraline HCl 150 MG 06/17 0800 AC 06/21 PO 0803 Sodium Chloride 2 SPRAY Q4P PRN 06/18 1130 AC TEDDY Vital Signs Date Time Temp Pulse Resp B/P Pulse O2 O2 Flow FiO2 Ox Delivery Rate 06/21 0758 97.0 77 96/68 06/20 1948 97.7 78 131/73 06/20 1601 80 138/70 06/20 1228 80 137/72 ASSESSMENT: Chart, progress notes, VS, labs and medication list were reviewed. Met with patient today, she presented A&Ox3. Eye contact was minimal. Affect was constricted and mood was dysphoric. Patient reported being "extremely frustrated " over limited rehab and crisis and respite bed availability and having to wait for placement. Patient was advised that given the wait list for rehabs and [facility], she will need to pursue a retirement bed and was strongly advised to call 211 for a retirement intake today. Patient resisted this option, and reported "how can you discharge me? I'm suicidal." Patient reported increased depression of 8/10 (10 being the worst) related to uncertainty of discharge plan and weight gain from current medication regimen. She reported anxiety of 4/10 (10 being the worst). Educated patient on making healthy diet choices while hospitalized and to introduce mild exercise. Patient verbalized understanding of education, and was agreeable to continue taking medications and diet/exercise recommendations. Patient could not contract for safety outside of hospital after having a conversation about tentative discharge for today. She expressed suicidal ideation, reported she would not be safe outside of hospital, and would not disclose a plan. She reported feeling safe on unit, and gave safety promise while on unit. She continued to report AH, but these to be less intense in volume and in frequency. She denied AH to be command in nature. She denied homicidal ideation and visual hallucinations. Thought process was concrete. Thought content was preocuppied about uncertainty of discharge plan. Cognition was grossly intact. There was no evidence of paranoia or delusions. Patient reported tolerating medications well and denied untoward medication effects. PLAN: 1. Continue monitoring the patient on unit for safety, mood, AH and suicidal ideation. 2. Continue current medications. 3. Continue contact with [facility] regarding bed availability and referred inpatient rehabs. 4. Dispo planning per primary team.
[2016-06-21 12:30] VITALS: BP 146/86
[2016-06-21 15:50] VITALS: BP 134/69
--- NOTE | 2016-06-21 17:19 | SOCIAL WORKER PROG NOTE PSYCH ---
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 Patient was accepted by [facility], but there are no openings this week. Patient has been referred to waiting bed at [facility] but called today, and Narayan indicated that he would call if any change; but did not anticipate. he did add that sometimes people leave unexpectedly.
[2016-06-21 19:55] VITALS: BP 127/79
--- NOTE | 2016-06-21 22:00 | NUR ---
Pt is in and out of her room mood is stable no behavioral issues noted during the day. Vital signs are stable will continue to monitor the pt overnight.
[2016-06-22 08:00] VITALS: BP 133/72
--- NOTE | 2016-06-22 08:22 | CP SOUTH PROGRESS NOTE PSYCH ---
Psych (Inpt) Progress Note Progress Note Include the following elements, when applicable: Involvement in the active treatment of the patient with behavioral observations of the patient and the patient's response to the treatment. Review of the ongoing treatment process in the context of the treatment plan. Indication of how multi-disciplinary staff members are carrying out the treatment plan. Plans for future interventions and recommendations for revision of the treatment plan. Liaison with other physicians/providers. Progress Note: [I discussed this patient's progress to date, current mental status, treatment process in the context of the treatment plan, and discharge planning with staff/ team in the daily morning inpatient team meeting. I also met with the patient myself in individual session.] SUBJECTIVE: "I'm nervous about discharging." OBJECTIVE: Current Medications Sig/Libia Start time Last Medication Dose Route Stop Time Status Admin Diphenhydramine HCl 50 MG AT BEDTIME PRN 06/18 1145 AC PO Ibuprofen 600 MG Q6P PRN 06/18 1130 AC 06/19 PO 1130 Methadone HCl 110 MG DAILY@0800 06/17 0830 AC 06/22 PO 0752 Multivitamins 1 TAB DAILY 06/09 1332 AC 06/22 PO 0753 Nicotine 2 MG Q1 NEEDED PRN 06/15 1530 AC 06/22 PO 0752 Nicotine 21 MG DAILY 06/10 1000 AC 06/22 TOP 0752 Olanzapine 5 MG 1300 06/17 1300 AC 06/22 PO 1257 Olanzapine 5 MG 0806/16 0800 AC 06/22 PO 0753 Olanzapine 10 MG 2200 06/13 2200 AC 06/21 PO 2154 Sertraline HCl 150 MG 06/17 0800 AC 06/22 PO 0752 Sodium Chloride 2 SPRAY Q4P PRN 06/18 1130 AC TEDDY Valacyclovir HCl 500 MG DAILY 06/22 1500 AC PO Vital Signs Date Time Temp Pulse Resp B/P Pulse O2 O2 Flow FiO2 Ox Delivery Rate 06/22 08 96.0 89 133/72 06/21 1955 96.7 81 127/79 06/21 1550 83 134/69 06/21 1230 86 146/86 ASSESSMENT: Chart, progress notes, labs, VS and medication list were reviewed. Spoke to traffic control officer Dr. Tadeo regarding patient's recurrence of oral/genital Herpes. Per MD, she can resume Valtrex 500mg daily as maintenance dose. Met with patient today, who presented A&Ox3. Speech was normal in rate, tone and volume. Mood was "ok, but nervous about discharging." Affect was mostly constricted. Eye contact was appropriate. She remains motivated to obtain an inpatient rehab bed, and was hopeful about receiving news tomorrow about bed availability at [facility], where she was accepted. She also called her DCF worker, Rena, to find out if DCF would help her find a substance abuse program/ or assist with paying for a hotel in the interim while awaiting inpatient rehab bed availability. She reported she spoke to her friend "Shimon" who she referred to as a mentor and sober friend, who is willing to pick her up from the hospital on Monday for discharge in the event a C&R or rehab bed does not materialize. She reported she would not be able to reside with him. She reported 5/10 depression (10 being the worst) and 5/10 anxiety (10 being the worst) surrounding uncertainty of discharge plan. She reported intermittent passive SI, denied plans or intent. She denied auditory and visual hallucinations. She denied homicidal ideation. Thought process was concrete and goal-directed. Thought content was appropriate. There was no evidence of paranoia or delusions. Cognition was grossly intact. She reported her sleep and appetite were good. Patient reported tolerating medications well and denied untoward medication effects. Recommended increasing Zoloft to 200mg daily to further target anxiety/ depression. Also recommended trial of Dobbins again for anti-suicidal properties. Patient refused both recommendations, and further medication adjustments. PLAN: 1. Continue current medications. 2. Continue monitoring the patient on unit for safety, suicidal ideation, AH and mood. 3. Encourage participation in milieu therapy. 4. Discharge by Monday with f/u to inpatient rehab if she has not already established C&[facility] or [facility] bed.
[2016-06-22 12:13] VITALS: BP 146/76
--- NOTE | 2016-06-22 13:11 | SOCIAL WORKER PROG NOTE PSYCH ---
Social Work Progress Note Progress Note Met individually with Martha and she was hugely relieved that she did not have to be discharged today. Per review with [facility] patient is authorized through Jun. Spoke with Pilar from [facility], and she gave me the names of 2 potential [employer] outreach workers who are regional managers. I called Carolina Sullivan [phone] and left message asking that she call myself or Francesca, and gave her the phone number. Patient mood improved when learned that she did not have to leave, but remains anxious about when and where she will be able to go. Patient has been accepted at [facility], but there were 2 or 3 ahead of her. Also Per Narayan there were no respite beds available as of now.
--- NOTE | 2016-06-22 13:13 | NUR ---
PT IS STABLE WITH LABILE AFFECT. PT IS LOUD AND NOT VERY REDIRECTABLE. PT IS VERY SENSITIVE AND GETS UP EASILY WHEN ASKED TO LOWER VOICE. PT BELIEVES THAT "STAFF DOESN'T LIKE ME". WHILE SHE HAS BEEN APPROPRIATE DURING THIS AM SHIFT PT HAS BEEN ON THE PHONE YELLING AT SOMEONE AND CONSISTENTLY BEING ASKED TO LOWER HER VOICE. SPORADICALLY ATTENDING GROUPS. PT VS ARE STABLE AND DENIES ANY SI/HI TO THIS MHW.
[2016-06-22 15:57] VITALS: BP 143/73
[2016-06-22 19:33] VITALS: BP 133/76
--- NOTE | 2016-06-22 21:15 | NUR ---
PT IS ISOLATIVE AND WITHDRAWN, APPEARING LETHARGIC, SLEEPING IN ROOM FOR LONG PERIODS OF TIME. PT IS OUT OF MILIEU OFTEN, BUT WHEN IN [place] IS COOPERATIVE WITH STAFF AND COMPLIANT WITH UNIT RULES. MOOD IS STABLE, AFFECT IS FULL RANGE, COMMUNICATON IS NORMAL, AND APPETITE IS NORMAL. PT DENIES SI AT THIS TIME.
[2016-06-23 07:55] VITALS: BP 115/81
[2016-06-23 12:14] VITALS: BP 126/72
--- NOTE | 2016-06-23 13:33 | CP SOUTH PROGRESS NOTE PSYCH ---
Psych (Inpt) Progress Note Progress Note Include the following elements, when applicable: Involvement in the active treatment of the patient with behavioral observations of the patient and the patient's response to the treatment. Review of the ongoing treatment process in the context of the treatment plan. Indication of how multi-disciplinary staff members are carrying out the treatment plan. Plans for future interventions and recommendations for revision of the treatment plan. Liaison with other physicians/providers. Progress Note: [I discussed this patient's progress to date, current mental status, treatment process in the context of the treatment plan, and discharge planning with staff/ team in the daily morning inpatient team meeting. I also met with the patient myself in individual session.] SUBJECTIVE: "I'm leaving tomorrow!" OBJECTIVE: Current Medications Sig/Libia Start time Last Medication Dose Route Stop Time Status Admin Diphenhydramine HCl 50 MG AT BEDTIME PRN 06/18 1145 AC PO Ibuprofen 600 MG Q6P PRN 06/18 1130 AC 06/19 PO 1130 Methadone HCl 110 MG DAILY@0806/17 0830 AC 06/23 PO 0821 Multivitamins 1 TAB DAILY 06/09 1332 AC 06/23 PO 0814 Nicotine 2 MG Q1 NEEDED PRN 06/15 1530 AC 06/23 PO 1119 Nicotine 21 MG DAILY 06/10 1000 AC 06/23 TOP 0814 Olanzapine 5 MG 1300 06/17 1300 AC 06/23 PO 1225 Olanzapine 5 MG 06/16 0800 AC 06/23 PO 0815 Olanzapine 10 MG 2200 06/13 2200 AC 06/22 PO 2206 Sertraline HCl 150 MG 06/17 0800 AC 06/23 PO 0814 Sodium Chloride 2 SPRAY Q4P PRN 06/18 1130 AC TEDDY Valacyclovir HCl 500 MG DAILY 06/22 1500 AC 06/23 PO 0814 Vital Signs Date Time Temp Pulse Resp B/P Pulse O2 O2 Flow FiO2 Ox Delivery Rate 06/23 1214 78 126/72 06/23 0755 97.0 87 115/81 06/22 1933 98.2 79 133/76 06/22 1557 84 143/73 ASSESSMENT: Chart, progress notes, labs, VS and medication list were reviewed. Met with patient today. She presented alert and oriented to person, place and time. Affect was bright. Mood was "good." Eye contact was appropriate. Speech was normal in rate, tone and volume. Patient remains motivated to follow-up with [facility] rehab post -discharge, was accepted to program and now awaiting bed availability. She was advised to call program daily until receiving a bed. Today, she reported depression of 4/10 (10 being the worst) and anxiety of 5/10 (10 being the worst) . She denied passive and active suicidal ideation, plans and intent. She denied feeling hopeless, helpless, worthless or guilty. She felt postive about getting into rehab and hopeful to receive bed by next week. Reported that her friend "Shimon" would pay for her to stay at a hotel for a few days, and would pick her up [facility] tomorrow post-dsicharge. She denied homicidal ideation. She denied auditory and visual hallucinations. She denied urges/cravings to use alcohol or drugs. Thought process remains concrete. Thought content was appropriate. Cognition was grossly intact. She reported tolerating medications well and denied untoward medication effects. She remains agreeable to taking them. PLAN: 1. Continue monitoring the patient on unit for safety, suicidal ideation, AH, and mood. 2. Continue current medication. 3. Discharge tomorrow at 1PM with f/u at [facility] rehab.
--- NOTE | 2016-06-23 14:20 | NUR ---
PT IS OUT IN COMMUNITY INTERACTING WELL WITH STAFF AND PEERS. PT HAS BEEN ATTEDNING GROUPS. PT IS LOOKING FORWARD TO DISCHARGE TOMORROW AND MAYBE A REHAB PLACEMENT. PT MOOD IS STABLE WITH A FULL RANGE AFFECT. PT DENIES ANY SI THOUGHTS
[2016-06-23 16:03] VITALS: BP 122/82
[2016-06-23 20:05] VITALS: BP 127/68
--- NOTE | 2016-06-23 22:56 | NUR ---
PT IS VISIBLE ON UNIT, SOCIAL WITH PEERS BUT NOT MUCH WITH STAFF. ATTENDED AA BUT REFUSED WRAP UP MEETING. WENT TO BED FAIRLY EARLY IN THE EVENING. COOPERATIVE AND COMPLIANT. NO COMPLAINTS OR SI REPORTED. PT HAS A STABLE MOOD AND FULL RANGE AFFECT.
--- NOTE | 2016-06-24 06:04 | NUR ---
PT APPEARED TO SLEEP.
[2016-06-24 07:19] VITALS: BP 118/73
--- NOTE | 2016-06-24 08:30 | CP SOUTH PROGRESS NOTE PSYCH ---
Psych (Inpt) Progress Note Progress Note Include the following elements, when applicable: Involvement in the active treatment of the patient with behavioral observations of the patient and the patient's response to the treatment. Review of the ongoing treatment process in the context of the treatment plan. Indication of how multi-disciplinary staff members are carrying out the treatment plan. Plans for future interventions and recommendations for revision of the treatment plan. Liaison with other physicians/providers. Progress Note: [I discussed this patient's progress to date, current mental status, treatment process in the context of the treatment plan, and discharge planning with staff/ team in the daily morning inpatient team meeting. I also met with the patient myself in individual session.] SUBJECTIVE: "I feel good!" OBJECTIVE: Current Medications Sig/Libia Start time Last Medication Dose Route Stop Time Status Admin Diphenhydramine HCl 50 MG AT BEDTIME PRN 06/18 1145 DC PO Ibuprofen 600 MG Q6P PRN 06/18 1130 AC 06/19 PO 1130 Methadone HCl 110 MG DAILY@0800 06/17 0830 AC 06/24 PO 0800 Multivitamins 1 TAB DAILY 06/09 1332 AC 06/24 PO 0801 Nicotine 2 MG .STK-MED ONE 06/23 1113 DC PO 06/23 1114 Nicotine 2 MG Q1 NEEDED PRN 06/15 1530 AC 06/23 PO 1119 Nicotine 21 MG DAILY 06/10 1000 AC 06/24 TOP 0801 Olanzapine 5 MG 0800,1300 06/24 0800 AC 06/24 PO 0801 Olanzapine 2.5 MG ONE TIME ONE 06/23 1630 DC 06/23 PO 06/23 1631 1624 Olanzapine 5 MG 1300 06/17 1300 DC 06/23 PO 1225 Olanzapine 5 MG 06/16 0800 DC 06/23 PO 0815 Olanzapine 10 MG 2200 06/13 2200 AC 06/23 PO 2315 Sertraline HCl 150 MG 0806/17 0800 AC 06/24 PO 0800 Sodium Chloride 2 SPRAY Q4P PRN 06/18 1130 DC TEDDY Valacyclovir HCl 500 MG DAILY 06/22 1500 AC 06/24 PO 0801 Vital Signs Date Time Temp Pulse Resp B/P Pulse O2 O2 Flow FiO2 Ox Delivery Rate 06/24 718 97.1 79 118/73 06/23 2004 98.5 82 127/68 06/23 1603 99 122/82 06/23 1214 78 126/72 ASSESSMENT: Chart, progress notes, labs, VS and medication list were reviewed. Per nursing staff, patient was anxious and endorsed non-command AH last evening and was given a 1 time dose of Zyprexa 2.5mg po with good effect. Met with patient today, on the date of discharge. She was alert and oriented to person, place, time and situation. Speech was normal in rate, tone and volume. Eye contact was appropriate. Affect was full-range. Mood was "good, I'm hopeful a bed will open soon at [facility]." She had no complaints. She reported anxiety of 5/10 (10 being the worst) regarding estimated time of bed availability at [facility]. She reported depression of 2/10 (10 being the worst). She denied feeling hopeless, helpless, worthless, or guilty. She denied active and passive suicidal ideation, plans and intent. She denied homicidal ideation. She stated and believed she will not harm herself or others. She reported protective factors of "my kids," "my brother," "my sobriety," and "my friend/mentor Shimon." She verbalized a safety plan to call 911/go to nearest emergency department in the event of an emergency or if psychiatric symptoms should recur. She denied urges or cravings to use substances. She denied auditory and visual hallucinations. She denied racing or intrusive thoughts. There was no evidence of paranoia or mahogany delusions. She reported her appetite and sleep were good. Thought process was concrete. Thought content was appropriate. Cognition was grossly intact. She reported tolerating all medications well and denied untoward medication effects. She reported feeling safe and ready for discharge. PLAN: 1. Discharge today into the care of friend/mentor Shimon who will pick-up patient from hospital. 2. F/u with [facility] where patient was accepted for residential rehab. Patient informed to call daily for update on bed availability. 3. Patient was provided with a referral to [facility] in [place] with the dates and times of walk-in hours in the event that the bed wait at [facility] is extended. Patient verbalized understanding of information. 4. All discharge prescriptions were called into [facility] in [place], [place] (#[phone]). Patient verbalized understanding. 5. Abstain from all substances. Patient advised to attend daily AA/NA meetings and obtain a sponsor for support in sobriety. 6. Patient refused post-discharge GH Smoking Cessation program and tobacco cessation medication. 7. In the event of an emergency, call 911/go to nearest emergency department. Patient verbalized understanding of instruction.
--- NOTE | 2016-06-24 08:34 | DISCHARGE SUMMARY REPORT-PSYCH ---
Visit Information Visit Dates/Diagnosis' Admission Date: 06/09/16 Discharge Date: 06/24/16 Reason for Admission: Suicidal ideation and attempt on unknown sleeping pills; alcohol and cocaine detox, auditory hallucinations. Psy Discharge Primary Diag: Bipolar disorder, mre depressed, severe, with psychotic features Psy Discharge Secondary Diag: Opioid use disorder (on methadone maintenance); Cocaine use disorder, severe; alcohol use disorder, severe; PTSD; R/O Schizoaffective disorder; Herpes. Hospital Course Significant Lab Findings: Lab Methadone Screen > 735 NG/ML H 06/13/16 1107 Urine Cocaine Screen > 1000 NG/ML H 06/09/16 0950 Urine Test NEGATIVE 06/08/16 1955 06/09/16 EKG: Sinus rhythm with rate of 69. Inferior Q waves, probably normal variation. MN: 412; QRSD: 94; QT: 412; QTc: 442; P: 31; QRS: 69; T: 12. Course Complications: None. Consultations: The patient was seen for admission history and physical by television station manager Dr. Paulo Alcala. Please see his note for additional information. Allergies: Coded Allergies: haloperidol (From HALDOL) (06/10/16) Hospital Course/TX Response: The patient was monitored on the unit for safety, suicidal ideation, mood, auditory hallucinations, cocaine and alcohol withdrawal. She participated in mutimodal treatments on the unit. She was monitored on [facility] protocol for alcohol withdrawal and successfully completed an Ativan taper. She had no complications due to alcohol withdrawal. Patient refused trials of [place] for mood stabilization and suicide prevention; she additionally refused trials of Depakote and Tegretol for mood stabilization due to required serum drug monitoring. Zoloft 100mg every morning was increased to 150mg every morning for anxiety and depression. Zyprexa 2.5mg every morning and 5mg at bedtime was started for mood stabilization and auditory hallucinations. Zyprexa was increased to 5mg every morning, 5mg at 1PM and 10mg at bedtime. The patient tolerated medications well and denied untoward medication effects. During the hospital course, the patient's mood and affect improved. Suicidal ideation and auditory hallucinations remitted. She refused having family/friends involved in her inpatient treatment. She was motivated to engage in after care plan at an inpatient residential substance abuse rehab. She was accepted to [facility] rehab, however there was no bed availability at the time of discharge and was advised to call daily for bed availability. The patient was also provided an outpatient psychiatric referral to [facility] in [place], [place] and their walk-in hours. Patient was in favor of discharge plan. On the date of discharge, 06/24/16, the patient was alert and oriented to person, place, time and situation. Speech was normal in rate, tone and volume. Eye contact was appropriate. Affect was full-range. Mood was "good, I'm hopeful a bed will open soon at [facility]." She had no complaints. She reported anxiety of 5/10 (10 being the worst) regarding estimated time of bed availability at [facility]. She reported depression of 2/10 (10 being the worst). She denied feeling hopeless, helpless, worthless, or guilty. She denied active and passive suicidal ideation, plans and intent. She denied homicidal ideation. She stated and also believed she will not harm herself or others. She reported protective factors of "my kids," "my brother," "my sobriety," and "my friend/mentor Shimon." She verbalized a safety plan to call 911/go to nearest emergency department in the event of an emergency or if psychiatric symptoms should recur. She denied urges or cravings to use substances. She denied auditory and visual hallucinations. She denied racing or intrusive thoughts. There was no evidence of paranoia or mahogany delusions. She reported her appetite and sleep were good. Thought process was concrete. Thought content was appropriate. Cognition was grossly intact. She reported tolerating all medications well and denied untoward medication effects. She reported feeling safe and ready for discharge. Discharge HBIPS - Tobacco Use Treatment Offered Post DC Medications Offered: Refused Tob Medication Tx Post DC Tobacco Treatment Plan: Refused Tobcco Tx Pgm - EtOH/Drug Use D/O Treatment Offered Post DC Medications Offered: Ref Med EtOH/Drug Use D/O Post DC EtOH/SubAbuse TX Plan: Refused Post DC Tx Pgm Metabolic Screening - Screen if on a Neuroleptic Medication - Metabolic screening should include: - Blood Pressure, BMI, Glucose or Hgb A1c, & a - Lipid profile from within the past 365 days. Metabolic Screening () Not Applicable, patient not on a neuroleptic. OR ([X]) Patient on a neuroleptic(s) . Enter below results for Glucose or Hemoglobin A1C, and lipid panel if obtained during the last 365 days. BMI: Blood Pressure: 128/73 Laboratory Results (If applicable): Lab Cholesterol 122 MG/DL 06/02/16 1338 Cholesterol/HDL Ratio 3 % 06/02/16 1338 HDL Cholesterol 45 mg/dL 06/02/16 1338 Hemoglobin A1c 5.3 06/01/16 1402 LDL Cholesterol, Calc 47 mg/dL L 06/02/16 1338 Triglycerides 153 mg/dL H 06/02/16 1338 Discharge Instructions General Discharge Information Discharge Medications: Discharge Medications- (Dose, route, freq, indication): HOME MEDICATION LIST START taking these NEW Home Medications: Valacyclovir Dose: ORAL, DAILY for Herpes Qty: 14 Called in to [facility] 500 Milligram Take 1 tab po daily. Refills: 0 Pharm 1 (Valtrex) 500 MG TABLET Last Taken:06/24/16 Time:8am Sertraline HCl Dose: ORAL, DAILY for Qty: 21 Called in to (Sertraline HCl) 100 1.5 Tablet depression/anxiety Refills: 0 Pharm 1 MG TABLET Take 1 and 1/2 tabs (150mg) po every morning. Last Taken:06/24/16 Time:8am Olanzapine Dose: ORAL, SEE INSTRUCTIONS Qty: 56 Called in to (Olanzapine) 5 MG 20 Milligram for mood Refills: 0 Pharm 1 TABLET stability/psychosis Take 1 tab (5mg) po at 8AM and 1PM. Take 2 tabs (10mg) po at bedtime. Last Taken:06/24/16 Time:8am Multivitamin (One Dose: ORAL, DAILY for VITAMIN Qty: 14 Daily Multivitamin) 1 Tablet SUPPORT Refills: 0 1 EACH TABLET Last Taken:06/24/16 Time:8am CONTINUE taking these Home Medications: Methadone HCl (Methadone Dose: ORAL, DAILY for RECOVERY HCl) 10 MG/ML ORAL.CONC 110 Milligram Last Taken:06/24/16 Time:0800 1: [facility] [id number], [address], [place] [phone] Patient reported having an adequate supply of daily multivitamins outside of the hospital, and was advised to take 1 tab daily by mouth for vitamin support. Your Preferred [facility] [id number] [address], [place] [id number] Multiple Neuroleptics: (X]) Not Applicable OR Document below three failed attempts at monotherapy, or a plan to taper to monotherapy, or augmentation of Clozapine. () Patient's Diet: Regular. Patient's Activity: No restrictions. DC Disposition: Patient to return to [facility] and self-care. Recommendations: The patient was advsied to please take medications as prescribed. She was advised to call [facility] daily to inquire about bed availability. She was advised to use barrier methods when sexually active to reduce the risk of and STDs. [facility] also [facility]. Education was provided on the teratogenic effects of all prescribed psychiatric medication. She was advised to follow-up at [facility] outpatient psychiatric services for walk-in treatment in the event that the bed wait at [facility] is prolonged. She was advised to abstain from all substances and to attend daily AA/NA meetings and obtain a sponsor. The patient was advised that in the event of an emergency, or if psychiatric symptoms recur to call 911/go to nearest emergency department. The patient verbalized understanding of all instructions. Referred To: [facility] [address], [place] [phone])[phone] Please call Elise daily at above telephone number until bed becomes available. [facility] [address], [place] (t)[phone] Walk-in to clinic Monday through Monday from 12pm-3pm for psychiatric outpatient intake. Copies To: [facility]; [facility]
[2016-06-24] MEDS ORDERED: VALTREX500 M1 PO (11:05)
[2016-06-24] MEDS ORDERED: SERTRALINE HCL100 MG PO (11:07)
[2016-06-24] MEDS ORDERED: OLANZAPINE5 M2 PO (11:10)
[2016-06-24] MEDS ORDERED: ONE DAILY MULT1 EAC2 PO (11:11)
--- NOTE | 2016-06-24 11:13 | NUR ---
will be discharged today to [facility] with follow up at [facility] in [place]. Mood is stable, full range of affect. denied thoughts of self harm when asked. given education on suicide prevention, bipolar and depression.
--- NOTE | 2016-06-24 11:30 | SOCIAL WORKER PROG NOTE PSYCH ---
Social Work Progress Note Progress Note Pt given the outpatient resources for [facility] in [place] they have walk in appointments daily. Pt reminded to call [facility] daily to secure her bed, she has been accepted. I faxed over the w10 to [facility] and Elise requested the PPD results, I afxed them as well to [phone]. Pt aware of plan and agrees with level of care. Pt denies si/hi ah/vh.
[2016-06-24 12:11] VITALS: BP 128/73
[2016-06-24 12:31] VITALS: BP 128/73
== END 2016-06-24 13:03 | DRG 753 ==
LOC: ENRESERVDT → ENRESERVTM → ERH 09:03 → CP SOUTH 12:37 → ERHI 12:37 → ENPENDDIS 12:37 → ERHI 13:10 → CP SOUTH 14:56
PROVIDERS: Emergency Medicine; ADMIT Psychiatry & Neurology Psychiatry
DX: F31.5 Bipolar disorder, current episode depressed, severe, with psychotic features (principal); F11.20 Opioid dependence, uncomplicated; F14.20 Cocaine dependence, uncomplicated; F10.20 Alcohol dependence, uncomplicated; B00.9 Herpesviral infection, unspecified
CPT/HCPCS: 80307; 81025; 93005; 93010; 99281; G0480; J3490